=== PATIENT | male | born 1960 | race Caucasian/White ===

== ENCOUNTER → 2017-12-14 08:35 | Outpatient (CLI) | payer BC, SELFPAY ==
[2017-12-14 10:35] LABS: AST(SGOT) 21 U/L (15-37); Alanine Aminotransfer ALT/SGPT 36 U/L (16-61); Albumin, Serum 4.1 g/dL (3.2-5.0); Alkaline Phosphatase 67 U/L (45-117); Anion Gap 12 (5-15); BUN 15 mg/dL (7-18); BUN/Creat Ratio 18.2 RATIO (10-20); Bilirubin, Direct 0.11 mg/dL (0.00-0.30); Calcium,Total 8.6 mg/dL (8.5-10.1); Chloride 104 mmol/L (98-107); Cholesterol 122 mg/dL (200); Creatinine, Serum 0.82 mg/dL (0.70-1.30); EST Glomerular Filtration Rate 102 mL/min (>60); Est Glom Filt Rate - Afr Amer 124 mL/min (>60); Globulin 4.1 g/dL (2.2-4.2); Glucose 135 mg/dL (74-106); High Density Lipoprotein 31 mg/dL; Potassium 3.9 mmol/L (3.5-5.1); Protein, Total 8.2 g/dL (6.4-8.2); Sodium Level 137 mmol/L (136-145); Triglycerides 361 mg/dL; Very Low Density Lipoprotein 72 mg/dL (5-40)
[2017-12-14 13:29] LABS: Microalbumin,Random Urine < 5.0 mg/L (NO RANGE EST.)
== END ==
PROVIDERS: Family Provider Family Medicine; PCP Family Medicine; Visit Provider Family Medicine
DX: E11.9 Type 2 diabetes mellitus without complications (principal)
CPT/HCPCS: 36415; 80048; 80061; 80076; 82043; 82570

== ENCOUNTER → 2018-07-11 20:00 | Outpatient (CLI) | payer BC, SELFPAY | PROVIDERS: Family Provider Family Medicine; PCP Family Medicine; Visit Provider Family Medicine | DX: G47.33 Obstructive sleep apnea (adult) (pediatric) (principal) | CPT/HCPCS: 95811 ==

== ENCOUNTER → 2018-12-13 08:37 | Outpatient (CLI) | payer BC, SELFPAY ==
[2018-12-13 10:39] LABS: AST(SGOT) 23 U/L (15-37); Alanine Aminotransfer ALT/SGPT 36 U/L (16-61); Albumin, Serum 4.2 g/dL (3.2-5.0); Alkaline Phosphatase 75 U/L (45-117); Anion Gap 11 (5-15); BUN 13 mg/dL (7-18); BUN/Creat Ratio 16.4 RATIO (10-20); Bilirubin, Direct 0.24 mg/dL (0.00-0.30); Calcium,Total 8.7 mg/dL (8.5-10.1); Chloride 103 mmol/L (98-107); Cholesterol 122 mg/dL (200); Creatinine, Serum 0.79 mg/dL (0.70-1.30); EST Glomerular Filtration Rate 107 mL/min (>60); Est Glom Filt Rate - Afr Amer 130 mL/min (>60); Globulin 3.1 g/dL (2.2-4.2); Glucose 128 mg/dL (74-106); High Density Lipoprotein 33 mg/dL; Protein, Total 7.3 g/dL (6.4-8.2); Sodium Level 138 mmol/L (136-145); Thyroid Stim Hormone (TSH) 2.26 uIU/mL (0.358-3.74); Triglycerides 275 mg/dL; Very Low Density Lipoprotein 55 mg/dL (5-40)
== END ==
PROVIDERS: Family Provider Family Medicine; PCP Family Medicine; Referring Provider Family Medicine; Visit Provider Family Medicine
DX: E11.9 Type 2 diabetes mellitus without complications (principal); E66.9 Obesity, unspecified
CPT/HCPCS: 36415; 80048; 80061; 80076; 84403; 84443

== ENCOUNTER → 2019-06-13 08:27 | Outpatient (CLI) | payer BC, SELFPAY ==
[2019-06-13 11:31] LABS: BUN 14 mg/dL (7-18); BUN/Creat Ratio 15.8 RATIO (10-20); Calcium,Total 9.1 mg/dL (8.5-10.1); Chloride 103 mmol/L (98-107); Cholesterol 124 mg/dL (200); Creatinine, Serum 0.89 mg/dL (0.70-1.30); EST Glomerular Filtration Rate 94 mL/min (>60); Est Glom Filt Rate - Afr Amer 113 mL/min (>60); Glucose 135 mg/dL (74-106); Sodium Level 138 mmol/L (136-145); Triglycerides 364 mg/dL
[2019-06-13 11:32] LABS: Anion Gap 10 (5-15); High Density Lipoprotein 32 mg/dL; Very Low Density Lipoprotein 73 mg/dL (5-40)
== END ==
PROVIDERS: Family Provider Family Medicine; PCP Family Medicine; Visit Provider Family Medicine
DX: E11.9 Type 2 diabetes mellitus without complications (principal)
CPT/HCPCS: 36415; 80048; 80061

== ENCOUNTER → 2019-11-13 10:20 | Outpatient (CLI) | payer BC, SELFPAY ==
--- NOTE | 2019-11-13 10:25 | RAD_ITS ---
STUDY: X-RAY - RIGHT FOOT CLINICAL: Male, 59 years old. Pain, history of fracture in August TECHNIQUE: 3 view(s) of the foot. COMPARISON: None. FINDINGS: At the base of the fifth metatarsal is likely due to fracture that occurred in August. There is still fracture lucency and cortical irregularity suggesting nonunion. Normal talus and tarsal bones. Prominent calcaneal spurs. Normal visualized subtalar, talonavicular, calcaneocuboid, tarsal and tarsometatarsal articulations. There is a calcification adjacent to the medial navicular likely accessory ossicle. Normal metatarsi. Normal metatarsophalangeal joint of the great toe. Normal tibial and fibular sesamoid bones. Normal interphalangeal joint of the great toe. Normal phalanges of the great toe. Normal second through fifth metatarsophalangeal joints. Normal interphalangeal joints and phalanges of the lesser toes. No significant soft tissue swelling, or foreign body RAD/Foot min 3 Views IMPRESSION: Fracture lucency and cortical irregularity noted at the base of the fifth metatarsal. 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
== END ==
PROVIDERS: PCP Family Medicine; Referring Provider Family Medicine; Visit Provider Family Medicine
DX: M79.671 Pain in right foot (principal)
CPT/HCPCS: 73630

== ENCOUNTER → 2019-12-04 07:01 | Outpatient (CLI) | payer BC, SELFPAY ==
[2019-12-04 10:10] LABS: Vitamin D,25 Hydroxy 12.9 ng/mL
== END ==
PROVIDERS: PCP Family Medicine; Referring Provider Podiatrist; Visit Provider Podiatrist
DX: S92.351A Displaced fracture of fifth metatarsal bone, right foot, initial encounter for closed fracture (principal)
CPT/HCPCS: 36415; 82306

== ENCOUNTER → 2020-01-23 07:00 | Outpatient (CLI) | payer BC, SELFPAY ==
[2020-01-23 10:29] LABS: Vitamin D,25 Hydroxy 26.4 ng/mL
== END ==
PROVIDERS: PCP Family Medicine; Referring Provider Podiatrist; Visit Provider Podiatrist
DX: E55.9 Vitamin D deficiency, unspecified (principal)
CPT/HCPCS: 36415; 82306

== ENCOUNTER → 2020-03-09 15:23 | Outpatient (CLI) | payer BC, SELFPAY ==
--- NOTE | 2020-03-09 15:27 | MRI_ITS ---
STUDY: MRI RIGHT MIDFOOT REASON FOR EXAM: Male, 59 years old. RIGHT foot OA, mid foot pain, 5th MT fx, history of stress fx TECHNIQUE: Standardized fat and water weighted pulse sequences were obtained in all 3 orthogonal planes. COMPARISON: None. FINDINGS: Normal talonavicular articulation. Normal calcaneocuboid articulation. There is moderate degenerative arthrosis of the navicular-cuneiform articulation. Normal intercuneiform articulations. Normal first tarsometatarsal articulation. Normal Lisfranc ligament. There is moderate degenerative arthrosis of the second and third tarsometatarsal articulations. Normal cuboid fourth and cuboid fifth tarsometatarsal articulation. Transverse fracture the proximal shaft of the fifth metatarsal bone consistent with an fatigue (stress) fracture. This is surrounded by mild stress reaction and cystic change. Normal tibialis anterior tendon. Normal extensor hallucis longus tendon. Normal extensor digitorum longus tendons. Normal peroneus longus tendon and distal insertion. Normal peroneus brevis tendon and distal insertion. Normal intrinsic muscles of the mid and forefoot region. Normal extensor digitorum brevis muscle. Normal subcutis adipose space. MRI/Lower Ext/No Jt/w/o IMPRESSION: 1. CT (stress) fracture of the proximal shaft of the fifth metatarsal bone with surrounding stress reaction and cystic change. 2. Moderate navicular cuneiform and tarsometatarsal joint arthrosis. Electronically Signed: Vladimir Rivas MD at 16:50 EDT Tel , Service support ,
== END ==
PROVIDERS: PCP Family Medicine; Referring Provider Podiatrist; Visit Provider Podiatrist
DX: M19.072 Primary osteoarthritis, left ankle and foot (principal); M19.071 Primary osteoarthritis, right ankle and foot; S92.351A Displaced fracture of fifth metatarsal bone, right foot, initial encounter for closed fracture
CPT/HCPCS: 73718

== ENCOUNTER → 2020-03-19 07:06 | Outpatient (CLI) | payer BC, SELFPAY ==
[2020-03-19 10:36] LABS: Vitamin D,25 Hydroxy 30.8 ng/mL
== END ==
PROVIDERS: PCP Family Medicine; Referring Provider Podiatrist; Visit Provider Podiatrist
DX: E55.9 Vitamin D deficiency, unspecified (principal)
CPT/HCPCS: 36415; 82306

== ENCOUNTER → 2020-05-14 08:45 | Outpatient (CLI) | payer BC, SELFPAY ==
[2020-05-14 10:32] LABS: ALB/GLOB Ratio 1.2 RATIO (0.9-2.4); AST(SGOT) 31 U/L (15-37); Alanine Aminotransfer ALT/SGPT 51 U/L (16-61); Albumin, Serum 4.1 g/dL (3.2-5.0); Alkaline Phosphatase 65 U/L (45-117); Anion Gap 6 (5-15); BUN 13 mg/dL (7-18); BUN/Creat Ratio 15.7 RATIO (10-20); Calcium,Total 8.9 mg/dL (8.5-10.1); Chloride 101 mmol/L (98-107); Creatinine, Serum 0.83 mg/dL (0.70-1.30); EST Glomerular Filtration Rate 101 mL/min (>60); Est Glom Filt Rate - Afr Amer 123 mL/min (>60); Globulin 3.5 g/dL (2.2-4.2); Glucose 142 mg/dL (74-106); Protein, Total 7.6 g/dL (6.4-8.2); Sodium Level 136 mmol/L (136-145)
== END ==
PROVIDERS: PCP Family Medicine; Referring Provider Family Medicine; Visit Provider Family Medicine
DX: E11.9 Type 2 diabetes mellitus without complications (principal)
CPT/HCPCS: 36415; 80053

== ENCOUNTER → 2021-02-22 15:19 | Outpatient (CLI) | payer BC, SELFPAY ==
[2021-02-22 17:47] LABS: Vitamin B12 1089 pg/mL (211-911); Vitamin D,25 Hydroxy 24.3 ng/mL
[2021-02-22 18:20] LABS: Erythrocyte Sedimentation Rate 15 mm/hr (0-20)
[2021-02-22 19:00] LABS: CRP < 2.90 mg/L (0.0-3.0); Rheumatoid Factor < 10.0 IU/mL (<15); Uric Acid 3.8 mg/dL (3.5-7.2)
[2021-02-24 15:33] LABS: ANTINUCLEAR ANTIBODIES DIRECT Negative (Negative)
[2021-02-28 16:08] LABS: VITAMIN B6 13.8 ug/L (5.3-46.7); Vitamin B1, Thiamine 295.9 nmol/L (66.5-200.0)
[2021-02-28 19:46] LABS: CCP IgG Antibodies 5 units (0-19)
== END ==
PROVIDERS: PCP Family Medicine; Referring Provider Podiatrist; Visit Provider Podiatrist
DX: M19.072 Primary osteoarthritis, left ankle and foot (principal); M19.071 Primary osteoarthritis, right ankle and foot; E55.9 Vitamin D deficiency, unspecified
CPT/HCPCS: 36415; 82306; 82607; 82746; 84207; 84425; 84550; 85652; 86038; 86140; 86200; 86431

== ENCOUNTER → 2021-05-13 08:33 | Outpatient (CLI) | payer BC, SELFPAY ==
[2021-05-13 10:39] LABS: Vitamin D,25 Hydroxy 40.6 ng/mL
[2021-05-13 10:49] LABS: ALB/GLOB Ratio 1.2 RATIO (0.9-2.4); AST(SGOT) 31 U/L (15-37); Alanine Aminotransfer ALT/SGPT 45 U/L (16-61); Albumin, Serum 4.1 g/dL (3.2-5.0); Alkaline Phosphatase 70 U/L (45-117); Anion Gap 7 (5-15); BUN 14 mg/dL (7-18); BUN/Creat Ratio 17.6 RATIO (10-20); Calcium,Total 9.1 mg/dL (8.5-10.1); Chloride 104 mmol/L (98-107); Cholesterol 128 mg/dL (200); EST Glomerular Filtration Rate 105 mL/min (>60); Est Glom Filt Rate - Afr Amer 128 mL/min (>60); Globulin 3.5 g/dL (2.2-4.2); Glucose 140 mg/dL (74-106); High Density Lipoprotein 32 mg/dL; Potassium 4.1 mmol/L (3.5-5.1); Protein, Total 7.6 g/dL (6.4-8.2); Sodium Level 136 mmol/L (136-145); Triglycerides 287 mg/dL; Very Low Density Lipoprotein 57 mg/dL (5-40)
== END ==
PROVIDERS: PCP Family Medicine; Visit Provider Family Medicine
DX: E78.5 Hyperlipidemia, unspecified (principal); E55.9 Vitamin D deficiency, unspecified; N52.9 Male erectile dysfunction, unspecified
CPT/HCPCS: 36415; 80053; 80061; 82306; 84403

== ENCOUNTER → 2021-09-28 16:48 | Outpatient (CLI) | payer BC, SELFPAY | PROVIDERS: PCP Family Medicine; Referring Provider Family Medicine; Visit Provider Family Medicine | DX: U07.1 COVID-19 (principal) | CPT/HCPCS: 87635; U0005; U0003 ==

== ENCOUNTER 2021-10-04 13:36 | Outpatient (CLI) | payer BC, SELFPAY ==
[2021-10-04 13:47] VITALS: BP 127/89; PULSE 96; RESP 16; TEMP 36.9; O2SAT 96; BMI 40.4
[2021-10-04] MEDS: 0.9% Saline Lock 10 ML Syringe IV (13:50)
[2021-10-04 14:23] VITALS: BP 140/81; PULSE 86; RESP 16; TEMP 37; O2SAT 97
[2021-10-04 15:07] VITALS: BP 143/90; PULSE 87; RESP 16; TEMP 36.7; O2SAT 99
== END 2021-10-04 15:22 | disposition home or self-care (01) ==
LOC: MS3OUT 13:37 → MS3 13:37
PROVIDERS: PCP Family Medicine; Referring Provider Nurse Practitioner Adult Health; Visit Provider Nurse Practitioner Adult Health
DX: U07.1 COVID-19 (principal)
CPT/HCPCS: J7050; M0245; Q0245; A4216

== ENCOUNTER 2021-12-02 08:35 | Outpatient (CLI) | payer BC, SELFPAY ==
[2021-12-02 10:28] LABS: Anion Gap 4 (5-15); BUN 12 mg/dL (7-18); Calcium,Total 9.1 mg/dL (8.5-10.1); Chloride 106 mmol/L (98-107); Cholesterol 126 mg/dL (200); EST Glomerular Filtration Rate 105 mL/min (>60); Est Glom Filt Rate - Afr Amer 126 mL/min (>60); Glucose 123 mg/dL (74-106); High Density Lipoprotein 36 mg/dL; Sodium Level 135 mmol/L (136-145); Triglycerides 235 mg/dL; Very Low Density Lipoprotein 47 mg/dL (5-40)
== END 2021-12-02 23:59 | disposition home or self-care (01) ==
LOC: MFPLAB 08:36
PROVIDERS: PCP Family Medicine; Referring Provider Family Medicine; Visit Provider Family Medicine
DX: E11.9 Type 2 diabetes mellitus without complications (principal); E55.9 Vitamin D deficiency, unspecified
CPT/HCPCS: 36415; 80048; 80061; 82306

== ENCOUNTER → 2022-05-26 | Outpatient (CLI) | payer BC, SELFPAY ==
[2022-05-26 10:32] LABS: Anion Gap 9 (5-15); BUN 13 mg/dL (7-18); BUN/Creat Ratio 15.4 RATIO (10-20); Calcium,Total 9.2 mg/dL (8.5-10.1); Chloride 105 mmol/L (98-107); Creatinine, Serum 0.84 mg/dL (0.70-1.30); EST Glomerular Filtration Rate 98 mL/min (>60); Est Glom Filt Rate - Afr Amer 119 mL/min (>60); Glucose 143 mg/dL (74-106); Potassium 4.1 mmol/L (3.5-5.1); Sodium Level 137 mmol/L (136-145)
[2022-05-26 10:44] LABS: Microalbumin,Random Urine < 5.0 mg/L (NO RANGE EST.)
== END | disposition home or self-care (01) ==
LOC: MFPLAB 08:52
PROVIDERS: PCP Family Medicine; Referring Provider Family Medicine; Visit Provider Family Medicine
DX: E11.9 Type 2 diabetes mellitus without complications (principal)
CPT/HCPCS: 36415; 80048; 82043

== ENCOUNTER → 2022-06-08 | Outpatient (CLI) | payer BC, SELFPAY | END | disposition home or self-care (01) | PROVIDERS: PCP Family Medicine; Visit Provider Podiatrist | DX: L03.031 Cellulitis of right toe (principal) | CPT/HCPCS: 87070; 87075; 87077; 87186; 87205 ==

== ENCOUNTER → 2022-12-29 | Outpatient (CLI) | payer BC, SELFPAY ==
--- NOTE | 2022-12-29 08:41 | RAD_ITS ---
INDICATION: PAIN EXAMINATION/TECHNIQUE: X-RAY - RIGHT XR Knee Complete 4 Views or More 4 VIEWS COMPARISON: None. FINDINGS: No acute fracture or dislocation. No destructive bone changes. Mild patellofemoral osteoarthrosis with joint space narrowing and mild spurring. Mild osteoarthrosis of the medial compartment with mild joint space narrowing and spurring. Joint spaces are otherwise well-maintained. Normal alignment. Soft tissues are unremarkable. No radiopaque foreign body or soft tissue gas. RAD/Knee 4 or More Views IMPRESSION: No acute findings. Mild osteoarthrosis. Electronically Signed: Debra Bethea MD at 18:11 EDT Reading Location ID and State: [id number] / Tel , Service support ,
--- NOTE | 2022-12-29 09:00 | RAD_ITS ---
INDICATION: PAIN EXAMINATION/TECHNIQUE: X-RAY - LEFT XR Knee Complete 4 Views or More 4 VIEWS COMPARISON: None. FINDINGS: No acute fracture or dislocation. No destructive bone changes. Small joint effusion. Mild osteoarthrosis of the patellofemoral joint with mild spurring. Joint spaces are otherwise well-maintained. Normal alignment. Soft tissues are unremarkable. No radiopaque foreign body or soft tissue gas. RAD/Knee 4 or More Views IMPRESSION: Small joint effusion. Mild osteoarthrosis. Electronically Signed: Debra Bethea MD at 18:07 EDT Reading Location ID and State: [id number] / Tel , Service support ,
[2022-12-29 10:21] LABS: ALB/GLOB Ratio 1.2 RATIO (0.9-2.4); AST(SGOT) 26 U/L (15-37); Alanine Aminotransfer ALT/SGPT 38 U/L (16-61); Albumin, Serum 4.1 g/dL (3.2-5.0); Alkaline Phosphatase 72 U/L (45-117); Anion Gap 11 (5-15); BUN 14 mg/dL (7-18); BUN/Creat Ratio 16.6 RATIO (10-20); Calcium,Total 9.4 mg/dL (8.5-10.1); Chloride 101 mmol/L (98-107); Creatinine, Serum 0.84 mg/dL (0.70-1.30); EST Glomerular Filtration Rate 98 mL/min (>60); Est Glom Filt Rate - Afr Amer 119 mL/min (>60); Globulin 3.5 g/dL (2.2-4.2); Glucose 159 mg/dL (74-106); Potassium 4.1 mmol/L (3.5-5.1); Protein, Total 7.6 g/dL (6.4-8.2); Sodium Level 138 mmol/L (136-145)
== END | disposition home or self-care (01) ==
LOC: MTLAB 08:39
PROVIDERS: PCP Family Medicine; Referring Provider Family Medicine; Visit Provider Family Medicine
DX: E78.5 Hyperlipidemia, unspecified (principal); M17.0 Bilateral primary osteoarthritis of knee
CPT/HCPCS: 36415; 73564; 80053

== ENCOUNTER → 2023-04-11 | Outpatient (CLI) | payer BC, SELFPAY ==
[2023-04-11 13:14] LABS: Absolute Lymphocyte Count 2.84 X10^3/uL (0.83-4.51); Absolute Neutrophil Count 7.8 X10^3/uL (2.0-7.7); Basophil# 0.15 X10^3/uL; Basophil% 1.2 % (0-1); Eosinophil# 1.06 X10^3/uL; Eosinophils% 8.2 % (0-5); Hematocrit 48.6 % (40-54); Hemoglobin 16.6 g/dL (13.0-16.5); Lymphocyte # 2.84 X10^3/ul (0.83-4.51); Lymphocyte % 22.1 % (19-41); Mean Corp Hgb Conc 34.2 g/dL (32-36); Mean Corpuscular Hgb 30.5 pg (27.0-32.0); Mean Corpuscular Volume 89.2 fL (80-94); Mean Platelet Vol. 10.7 fl (6.2-12.0); Monocyte# 0.98 X10^3/uL; Monocyte% 7.6 % (0-10); NRBC Flagged by Analyzer 0 % (0-5); Neutrophil # 7.77 X10^3/uL (2.7-7.7); Neutrophil % 60.5 % (47-70); Platelet Count 289 K/mm3 (150-450); RBC Distribution Width CV 12.2 % (11.6-14.6); RBC Distribution Width SD 39.5 fl (35.1-43.9); Red Blood Count 5.45 M/mm3 (4.6-6.2); White Blood Count 12.9 K/mm3 (4.4-11.0)
[2023-04-11 13:15] LABS: Erythrocyte Sedimentation Rate 9 mm/hr (0-20)
[2023-04-11 13:34] LABS: ALB/GLOB Ratio 1.1 RATIO (0.9-2.4); AST(SGOT) 21 U/L (15-37); Alanine Aminotransfer ALT/SGPT 32 U/L (16-61); Albumin, Serum 3.9 g/dL (3.2-5.0); Alkaline Phosphatase 85 U/L (45-117); Anion Gap 6 (5-15); BUN 13 mg/dL (7-18); BUN/Creat Ratio 16.1 RATIO (10-20); CRP < 2.90 mg/L (0.0-3.0); Calcium,Total 9.2 mg/dL (8.5-10.1); Chloride 105 mmol/L (98-107); Creatinine, Serum 0.81 mg/dL (0.70-1.30); EST Glomerular Filtration Rate 103 mL/min (>60); Est Glom Filt Rate - Afr Amer 125 mL/min (>60); Globulin 3.4 g/dL (2.2-4.2); Glucose 126 mg/dL (74-106); Potassium 4.4 mmol/L (3.5-5.1); Protein, Total 7.3 g/dL (6.4-8.2); Rheumatoid Factor < 10.0 IU/mL (<15); Sodium Level 135 mmol/L (136-145)
[2023-04-11 14:14] LABS: Hepatitis B Surface Antibody Non-Reactive; Hepatitis B Surface Antigen Non-Reactive (Nonreactive); Hepatitis C Antibody Non-Reactive (Nonreactive)
[2023-04-12 12:09] LABS: CCP IgG Antibodies 5 units (0-19)
[2023-04-12 15:08] LABS: ANTINUCLEAR ANTIBODIES DIRECT Negative (Negative)
== END | disposition home or self-care (01) ==
LOC: MTLAB 10:11
PROVIDERS: PCP Family Medicine; Referring Provider Internal Medicine Rheumatology; Visit Provider Internal Medicine Rheumatology
DX: M06.4 Inflammatory polyarthropathy (principal); E11.9 Type 2 diabetes mellitus without complications; M19.041 Primary osteoarthritis, right hand; M19.042 Primary osteoarthritis, left hand; M19.071 Primary osteoarthritis, right ankle and foot; M19.072 Primary osteoarthritis, left ankle and foot; I10 Essential (primary) hypertension; E78.5 Hyperlipidemia, unspecified
CPT/HCPCS: 36415; 80053; 85025; 85652; 86038; 86140; 86200; 86431; 86706; 86803; 87340

== ENCOUNTER → 2023-05-01 | Outpatient (CLI) | payer BC, SELFPAY ==
[2023-05-01 12:28] LABS: Pathologist Comment May follow
[2023-05-01 13:07] LABS: Synovial Fld Mononuclear WBC # 0.072 10^3/ul; Synovial Fld Mononuclear WBC % 88.9 %; Synovial Fld Polynuclear WBC # 0.009 10^3/uL; Synovial Fld Polynuclear WBC % 11.1 %
[2023-05-01 13:11] LABS: AUTO B FLUID DILUENT BKGD CT WBC <0.1 RBC <0.01 (W<.1,R<.01)
[2023-05-01 13:12] LABS: Source / Synovial Fluid RIGHT KNEE; Source- Body Fluid SYNOVIAL
[2023-05-01 13:15] LABS: CRYSTALS, BODY FLUID NO CRYSTALS SEEN
[2023-05-01 13:16] LABS: Appearance /Synovial Fluid Clear (CLEAR); Color / Synovial Fluid Yellow (Pale Yellow)
[2023-05-01 14:24] LABS: Lymph 54 %; Monocyte /Synovial Fluid 12 %; Neutrophil 8 % (0-25); Other Cell /Synovial Fluid 26 %
[2023-05-01 14:25] LABS: Body Fluid QC Type(s) BF1Q,BF2Q; RBC /Synovial Fluid 170 /mm3 (0)
[2023-05-03 09:50] LABS: Pathologist Review Reviewed
== END | disposition home or self-care (01) ==
LOC: LABSPEC 12:18
PROVIDERS: PCP Family Medicine; Referring Provider Internal Medicine Rheumatology; Visit Provider Internal Medicine Rheumatology
DX: M06.4 Inflammatory polyarthropathy (principal); E11.9 Type 2 diabetes mellitus without complications; M19.041 Primary osteoarthritis, right hand; M19.042 Primary osteoarthritis, left hand; M19.071 Primary osteoarthritis, right ankle and foot; M19.072 Primary osteoarthritis, left ankle and foot; M21.41 Flat foot [pes planus] (acquired), right foot; M21.42 Flat foot [pes planus] (acquired), left foot; I10 Essential (primary) hypertension; E78.5 Hyperlipidemia, unspecified; G47.33 Obstructive sleep apnea (adult) (pediatric); Z79.899 Other long term (current) drug therapy
CPT/HCPCS: 87070; 87075; 87205; 89050; 89051; 89060

== ENCOUNTER → 2023-06-29 | Outpatient (CLI) | payer BC, SELFPAY ==
[2023-06-29 10:43] LABS: Microalbumin,Random Urine < 5.0 mg/L (NO RANGE EST.)
[2023-06-29 10:45] LABS: Anion Gap 6 (5-15); BUN 15 mg/dL (7-18); BUN/Creat Ratio 19.3 RATIO (10-20); Calcium,Total 8.7 mg/dL (8.5-10.1); Chloride 107 mmol/L (98-107); Cholesterol 139 mg/dL (200); Creatinine, Serum 0.78 mg/dL (0.70-1.30); EST Glomerular Filtration Rate 107 mL/min (>60); Est Glom Filt Rate - Afr Amer 130 mL/min (>60); Glucose 124 mg/dL (74-106); High Density Lipoprotein 42 mg/dL; Sodium Level 135 mmol/L (136-145); Triglycerides 183 mg/dL; Very Low Density Lipoprotein 37 mg/dL (5-40)
[2023-06-29 11:07] LABS: Hemoglobin A1c 5.9 % (3.8-5.6)
== END | disposition home or self-care (01) ==
LOC: MFPLAB 08:49
PROVIDERS: PCP Family Medicine; Visit Provider Family Medicine
DX: E11.9 Type 2 diabetes mellitus without complications (principal)
CPT/HCPCS: 36415; 80048; 80061; 82043; 82570; 83036

== ENCOUNTER → 2023-07-03 | Outpatient (CLI) | payer BC, SELFPAY ==
[2023-07-03 17:32] LABS: Absolute Neutrophil Count 7.9 X10^3/uL (2.0-7.7); Basophil# 0.13 X10^3/uL; Eosinophil# 0.42 X10^3/uL; Eosinophils% 3.3 % (0-5); Hematocrit 46.5 % (40-54); Hemoglobin 16.2 g/dL (13.0-16.5); Lymphocyte % 25.4 % (19-41); Mean Corp Hgb Conc 34.8 g/dL (32-36); Mean Corpuscular Hgb 31.2 pg (27.0-32.0); Mean Corpuscular Volume 89.4 fL (80-94); Mean Platelet Vol. 10.5 fl (6.2-12.0); Monocyte% 7.1 % (0-10); NRBC Flagged by Analyzer 0 % (0-5); Neutrophil # 7.91 X10^3/uL (2.7-7.7); Neutrophil % 62.7 % (47-70); Platelet Count 296 K/mm3 (150-450); RBC Distribution Width SD 42.5 fl (35.1-43.9); White Blood Count 12.6 K/mm3 (4.4-11.0)
[2023-07-03 17:55] LABS: AST(SGOT) 16 U/L (15-37); Alanine Aminotransfer ALT/SGPT 33 U/L (16-61); Albumin, Serum 3.6 g/dL (3.2-5.0); Alkaline Phosphatase 88 U/L (45-117); Anion Gap 7 (5-15); BUN 15 mg/dL (7-18); BUN/Creat Ratio 17.5 RATIO (10-20); Calcium,Total 9.2 mg/dL (8.5-10.1); Chloride 105 mmol/L (98-107); Creatinine, Serum 0.86 mg/dL (0.70-1.30); EST Glomerular Filtration Rate 96 mL/min (>60); Est Glom Filt Rate - Afr Amer 116 mL/min (>60); Globulin 3.7 g/dL (2.2-4.2); Glucose 158 mg/dL (74-106); Potassium 3.7 mmol/L (3.5-5.1); Protein, Total 7.3 g/dL (6.4-8.2); Sodium Level 137 mmol/L (136-145)
[2023-07-09 06:07] LABS: G6PD Quant Test 265 (127-427); Red Blood Cell Count Test/G6PD 5.22 x10E6/uL (4.14-5.80)
== END | disposition home or self-care (01) ==
LOC: MTLAB 14:22
PROVIDERS: PCP Family Medicine; Referring Provider Internal Medicine Rheumatology; Visit Provider Internal Medicine Rheumatology
DX: M06.4 Inflammatory polyarthropathy (principal); Z79.899 Other long term (current) drug therapy
CPT/HCPCS: 36415; 80053; 82955; 85025

== ENCOUNTER 2023-08-13 11:43 | Observation (INO) | payer BC, SELFPAY ==
[2023-08-13 11:44] VITALS: BP 134/89; PULSE 111; RESP 16; TEMP 36.6; O2SAT 97; BMI 42.3
--- NOTE | 2023-08-13 12:32 | EKG12_ITS ---
Test Reason : CP Blood Pressure : / mmHG Vent. Rate : 110 BPM Atrial Rate : 110 BPM P-R Int : 172 ms QRS Dur : 088 ms QT Int : 330 ms P-R-T Axes : 031 086 003 degrees QTc Int : 446 ms Sinus tachycardia T wave abnormality, consider inferior ischemia Abnormal ECG Confirmed by CAIO AMADOR, DEMETRIUS ([id number]), supervising editor trailer ROOSEVELT MAYES ([id number]) on 08/20/2023 10:01:24 AM Referred By: TANNER/ZORA Confirmed By:ANDREA KEARNEY MD
--- NOTE | 2023-08-13 12:39 | RAD_ITS ---
STUDY: X-RAY CHEST REASON FOR EXAM: Male, 63 years old. Chest pain and nausea. TECHNIQUE: Single AP portable view of the chest. COMPARISON: None. FINDINGS: EKG electrodes are seen. The lungs are clear and expanded. There is no demonstrated pleural abnormality. Normal size heart. Normal mediastinum and jenniffer. Normal visualized pulmonary arteries. Normal visualized aortic arch and descending thoracic aorta. There are diffuse degenerative changes of the visualized thoracic spine. Normal visualized ribs, clavicles, and shoulders. There is no demonstrated abnormality of the visualized soft tissue structures of the upper abdomen. RAD/Chest 1 View (Portable) IMPRESSION: No acute abnormality is seen. Electronically Signed: Viktor Mckinney MD at 13:01 EST ,
[2023-08-13 12:50] LABS: Absolute Lymphocyte Count 1.11 X10^3/uL (0.83-4.51); Absolute Neutrophil Count 4.6 X10^3/uL (2.0-7.7); Basophil# 0.12 X10^3/uL; Basophil% 1.8 % (0-1); Eosinophil# 0.02 X10^3/uL; Eosinophils% 0.3 % (0-5); Hematocrit 45.4 % (40-54); Hemoglobin 15.3 g/dL (13.0-16.5); Lymphocyte # 1.11 X10^3/ul (0.83-4.51); Lymphocyte % 16.6 % (19-41); Mean Corp Hgb Conc 33.7 g/dL (32-36); Mean Platelet Vol. 9.6 fl (6.2-12.0); Monocyte# 0.78 X10^3/uL; Monocyte% 11.7 % (0-10); NRBC Flagged by Analyzer 0 % (0-5); Neutrophil % 68.9 % (47-70); Platelet Count 247 K/mm3 (150-450); RBC Distribution Width CV 12.7 % (11.6-14.6); RBC Distribution Width SD 41.5 fl (35.1-43.9); White Blood Count 6.7 K/mm3 (4.4-11.0)
[2023-08-13] MEDS: Aspirin 81 MG TAB.CHEW 324 MG PO (12:56)
[2023-08-13 13:06] LABS: Anion Gap 6 (5-15); BUN 15 mg/dL (7-18); BUN/Creat Ratio 17.7 RATIO (10-20); Calcium,Total 9.2 mg/dL (8.5-10.1); Chloride 104 mmol/L (98-107); Creatinine, Serum 0.85 mg/dL (0.70-1.30); EST Glomerular Filtration Rate 98 mL/min (>60); Est Glom Filt Rate - Afr Amer 118 mL/min (>60); Estimated Creatinine Clearance 93.04 ml/min; Glucose 112 mg/dL (74-106); Potassium 3.9 mmol/L (3.5-5.1); Sodium Level 135 mmol/L (136-145); Troponin-I HS (w/2H Reflex) 25 pg/mL (3.0-78.0)
--- NOTE | 2023-08-13 13:58 | ED.VIS.CHEST ---
HPI History of Present Illness Chief Complaint: Chest Pain Informant: patient Onset/Context/Timing Onset: Days (Past 6 days) Activity at onset: sudden and sleep Timing: Intermittent Quality: Positive for Pressure Location: Substernal Current Severity: Gone Maximum Severity: Moderate Worsened By: Nothing Relieved By: Nothing Associated Symptoms: Positive for Dyspnea; Negative for Nausea, Vomiting, Diaphoresis, Cough, Fever, Lightheadedness, Acid Reflux or Palpitations Narrative Narrative: Patient is a 63-year-old male. He has history of diabetes, hypertension, hypercholesterolemia. There is no family history of coronary disease. He has no known history of coronary disease. He denies history of PE or DVT. He presents because 3 out of the past 6 nights he is awakened from sleep with chest pressure lasting 5+ minutes with dyspnea. He has a sit up in bed. He uses his APAP machine. He was not approved for BiPAP. 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 He recommended BiPAP however insurance declined. Patient does have history of diabetic neuropathy. Patient is presently pain-free. He denied nausea, vomiting or diaphoresis with these 3 episodes. He denies leg pain or swelling or discoloration. He denies black or maroon-colored stool. He denies history of reflux or hiatal hernia. He denies intolerance to food. He is on an NSAID. Prior Similar Symptoms: No Recent Illness/Hospitalization: No CVD Risk Factors: Positive for Hypertension, Diabetes and Hypercholesterolemia; Negative for Family History 1' </=55 PE Risk Factors: Negative for Recent Travel/Surgery, Recent Immobilization, Prior DVT or PE, Cancer or OCP + Smoking + >/=35 TAD Risk Factors: Positive for Hypertension; Negative for Marfan's Syndrome or Family History [facility] Medical History Diabetes HTN (hypertension) Hyperlipidemia Sleep apnea Home Medications empagliflozin 10 mg tablet (Jardiance) 25 mg PO DAILY 10/04/21 [History Last Taken 08/13/23] gemfibrozil 600 mg tablet 600 mg PO BID 10/04/21 [History Last Taken 08/13/23] icosapent ethyl 1 gram capsule (Vascepa) 2 g PO BID 10/04/21 [History Last Taken 08/13/23] insulin glargine U-300 conc 300 unit/mL (3 mL) subcutaneous pen (Toujeo Max U-300 SoloStar) 100 unit subcut DAILY 10/04/21 [History Last Taken 08/12/23] amlodipine 10 mg-benazepril 40 mg capsule 1 cap PO DAILY 08/13/23 [History Last Taken 08/13/23] atorvastatin 80 mg tablet 80 mg PO DAILY 08/13/23 [History Last Taken 08/13/23] calcium 600 mg capsule 600 mg PO BID 08/13/23 [History Last Taken 08/13/23] cholecalciferol (vitamin D3) 50 mcg (2,000 unit) tablet (Vitamin D3) 50 mcg PO BID 08/13/23 [History Last Taken 08/13/23] coenzyme Q10 100 mg capsule (CoQ-10) 200 mg PO DAILY 08/13/23 [History Last Taken 08/13/23] gabapentin 300 mg capsule 300 mg PO Q12H 08/13/23 [History Last Taken 08/13/23] insulin lispro 200 unit/mL (3 mL) subcutaneous pen (Humalog KwikPen U-200 Insulin) 25 unit subcut TID 08/13/23 [History Last Taken 08/13/23] meloxicam 15 mg tablet 15 mg PO DAILY 08/13/23 [History Last Taken 08/13/23] sulfasalazine 500 mg tablet,delayed release 0.5 g PO Q12H 08/13/23 [History Last Taken 08/13/23] trazodone 50 mg tablet 50 mg PO DAILY 08/13/23 [History Last Taken 08/12/23] Allergy/AdvReac Type Severity Reaction Status Date / Time No Known Allergies Allergy Verified 08/13/23 11:45 Social History (Updated 08/13/23 @ 14:[address] Jorge De Souza MD) Smoking Status: Unknown if ever smoked substance use type: does not use ROS ROS ED Constitutional Constitutional ED: Denies chills, fever(s), subjective, sweats or weight loss Eyes Eyes: Reports none ENT ENT ED: Denies ear pain, rhinorrhea or sore throat Cardiovascular Cardiovascular: Reports as per HPI and paroxysmal nocturnal dyspnea; Denies orthopnea Respiratory/Chest Respiratory/Chest: Reports paroxysmal nocturnal dyspnea; Denies cough, dyspnea on exertion or orthopnea Gastrointestinal Gastrointestinal: Denies abdominal pain, melena, nausea or vomiting Genitourinary Genitourinary ED: Denies dysuria, hematuria or urinary frequency Musculoskeletal Musculoskeletal: Denies arthralgias, back pain or neck pain Integumentary Denies rash Neurologic Neurologic: Denies headache(s), paresthesias or weakness Hematologic/Lymphatic Hematologic/Lymphatic: Denies easy bleeding or easy bruising EXAM Physical Exam Const Vital Signs: 08/13/23 11:44 08/13/23 12:18 08/13/23 12:32 Temperature 97.8 F Temperature Source Temporal Pulse Rate 111 H Respiratory Rate 16 Respiratory Effort Normal Blood Pressure 134/89 H Blood Pressure Mean 104 Pulse Ox 97 Oxygen Delivery Method Room Air Room Air 08/13/23 14:20 08/13/23 15:00 Temperature Temperature Source Pulse Rate 106 H 100 Respiratory Rate 10 L 20 H Respiratory Effort Blood Pressure Blood Pressure Mean Pulse Ox 95 95 Oxygen Delivery Method Positive well nourished, well developed and obese General Appearance ED: well developed and NAD; Negative for pallor Nutritional Appearance: obese HEENT Reports TM's clear Tympanic Membrane ED: Yes TM's clear Eyes PERRL and EOMs intact bilaterally General Eye ED: Negative for pale conjunctiva or scleral icterus Neck no lymphadenopathy, supple and no JVD Chest Wall inspection of chest normal and palpation of chest normal Resp normal respiratory effort and clear to auscultation bilaterally Cardio regular rate, regular rhythm, S1 normal heart sound, S2 normal heart sound and no murmurs GI normal to inspection, nondistended, normoactive bowel sounds, soft to palpation, non-tender, non-distended and no masses; Negative for hepatosplenomegaly Back/Spine Back/Spine Narrative: Inspection is normal. Extremity normal to inspection General Extremety ED: Negative for edema, pulses abnormal or tenderness General Extremity: Negative for edema or pulses abnormal Neuro oriented x3, CN's II-XII intact bilaterally and no sensory deficits noted Sensorium / Orientation: awake and alert Motor Exam: strength 5/5 throughout Psych mental status grossly normal Skin no rashes or lesions noted and no wounds General Skin Exam: Negative for jaundice or pallor Heart Score History: Moderately Suspicious ECG: Nonspecific Repolarization Age: >45 - <65 years Risk Factors: >/= 3 Risk Factors or History of CAD Troponin: </= Normal Limit Score: 5 MDM MDM MDM Narrative Medical decision making narrative: Patient presents with PND and chest pressure that awakens him from sleep. He does have 3 risk factors for coronary disease. Will obtain EKG and serial troponins. If troponins are elevated we will contact hospitalist on mold designer for admission. If troponins are not elevated will contact mold designer regarding inpatient versus outpatient work-up and discussed this with patient. CBC was obtained to rule out anemia. BMP to assess renal. Troponin and 2-hour troponin determine cardiac ischemia. Chest x-ray was obtained to see if there is a pulmonary or possible GI cause i.e. hiatal. Lab Data Attestation: I reviewed the patient's lab results. Lab results narrative: CBC is normal. Basic metabolic panel is unremarkable her glucose is 112. First troponin is 25-second is 29 with a delta of 4. These are both normal. Awaiting call back from cardiology on-call to discuss case determine outpatient work-up is appropriate versus 23 observation and inpatient stress test. Labs: Laboratory Results - last 24 hr 08/13/23 08/13/23 12:10 14:55 WBC 6.7 RBC 5.10 Hgb 15.3 Hct 45.4 MCV 89.0 MCH 30.0 MCHC 33.7 RDW Std Deviation 41.5 RDW Coeff of Heriberto 12.7 Plt Count 247 MPV 9.6 Immature Gran % (Auto) 0.700 Neut % (Auto) 68.9 Lymph % (Auto) 16.6 L Cecil % (Auto) 11.7 H Eos % (Auto) 0.3 Baso % (Auto) 1.8 H Absolute Neuts (auto) 4.6 Absolute Lymphs (auto) 1.11 Nucleated RBC % 0 Sodium 135 L Potassium 3.9 Chloride 104 Carbon Dioxide 25.0 Anion Gap 6 BUN 15 Creatinine 0.85 Estim Creat Clear Calc 93.04 Est GFR (MDRD) Af Amer 118 Est GFR (MDRD) Non-Af 98 BUN/Creatinine Ratio 17.7 Glucose 112 H Calcium 9.2 Troponin I High Sens 25 29 Radiography Chest X-Ray - ED: 1 View and Read by ED Physician (Single view portable chest x-ray reveals no abnormality. Cardiac silhouette and size normal. Perihilar region is normal. Lung parenchyma is normal. Osseous structures remark this was independent reviewed interpreted by me) Diagnostic Testing: Clinical Impression(s) from Imaging Studies Chest X-Ray 08/13/23 12:39 IMPRESSION: No acute abnormality is seen. Electronically Signed: Viktor Mckinney MD at 13:01 EST , EKG Initial EKG: Attestation: I personally reviewed and interpreted this EKG as follows: Interpretation: Sinus Tachycardia (Sinus tachycardia rate of 110. There is an ossific T wave changes noted in lead III. Believe the changes noted in 3 and aVF are artifacts are noted in other leads as well. MN interval is 172 ms. Cures duration 88 ms. QT duration 230 ms. 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, pneumonia Reason(s) pneumonia less likely: Positive for no infiltrate on CXR, no elevation in WBC count, no noted fever and symptoms not consistent with acute infection and aortic dissection Reason(s) Aortic dissection less likely:: Positive for normal vascular exam, normal neurological exam, no significant risk factors for dissection, no widened mediastinum on CXR, pain not sudden onset, no ripping/tearing pain, no pain to back and blood pressure appropriate in ED Management Discussion w/another healthcare provider: Hospitalist and Lighting Fixtures Decorator (Spoke with mold designer on-call Dr. Patel who recommended inpatient work-up. He recommended echo first and pending results of echo whether patient needs a stress test or potential cardiac catheterization.) Discharge Plan Triage Chief Complaint: Chest Pain ED Provider: Jorge De Souza Dx/Rx/DC Orders Clinical Impression: Chest pressure, Diabetes, Dyspnea, paroxysmal nocturnal, History of hypertension, History of hypercholesterolemia Prescriptions: No Action gemfibrozil 600 mg tablet 600 mg PO BID icosapent ethyl [Vascepa] 1 gram Capsule 2 g PO BID Jardiance 10 mg Tablet 25 mg PO DAILY Toujeo Max U-300 SoloStar 300 unit/mL (3 mL) Insulin Pen 100 unit SUBCUT DAILY amlodipine-benazepril 10-40 mg capsule 1 cap PO DAILY Patient Comments: TAKE 1 CAPSULE BY MOUTH EVERY DAY atorvastatin 80 mg tablet 80 mg PO DAILY Patient Comments: TAKE 1 TABLET BY MOUTH EVERY DAY gabapentin 300 mg capsule 300 mg PO Q12H Patient Comments: TAKE 1 CAPSULE BY MOUTH TWICE A DAY Humalog KwikPen Insulin 200 unit/mL (3 mL) insulin pen 25 unit SUBCUT TID Patient Comments: 25 UNIT UNDER SKIN THREE TIMES DAILY meloxicam 15 mg tablet 15 mg PO DAILY Patient Comments: TAKE 1 TABLET BY MOUTH EVERY DAY sulfasalazine 500 mg tablet,delayed release (DR/EC) 0.5 g PO Q12H Patient Comments: TAKE 1 TABLET BY MOUTH TWICE A DAY trazodone 50 mg tablet 50 mg PO DAILY Patient Comments: TAKE 1 TABLET BY MOUTH EVERYDAY AT BEDTIME cholecalciferol (vitamin D3) [Vitamin D3] 50 mcg (2,000 unit) tablet 50 mcg PO BID coenzyme Q10 [CoQ-10] 100 mg capsule 200 mg PO DAILY calcium 600 mg capsule 600 mg PO BID Primary Care Provider: Yovany Erazo Referrals: Yovany Erazo MD [Primary Care Provider] - Disposition Disposition: Acute Care Hospital [facility]
[2023-08-13 14:20] VITALS: PULSE 106; RESP 10; O2SAT 95
[2023-08-13 14:46] LABS: Reflex Troponin-HS? (from REC) Y
[2023-08-13 15:00] VITALS: PULSE 100; RESP 20; O2SAT 95
[2023-08-13 15:30] LABS: Troponin-I HS 29 pg/mL (3.0-78.0)
--- NOTE | 2023-08-13 16:19 | HP.PCM.HOS_ITS ---
HPI - General General Date of Admission: 08/13/23 HPI Narrative DAPHNEY VINSON, is a 63 M who presents to the hospital for shortness of breath and periodic chest pain over the last 6 days. He has had 3 nights where he is woken up gasping for breath and noticed to have left-sided chest pain. This has resolved fairly quickly upon awakening. He does have a history obstructive sleep apnea and does wear his CPAP but he is morbidly obese and there is a heart history in the family as well. In the ER EKG was nonischemic and initial troponin was 25 with a second troponin going up to 29. Cardiology was consulted by the ER and they felt that it would be prudent to admit the patient for f urther work-up. [facility] Medical History Diabetes HTN (hypertension) Hyperlipidemia Sleep apnea Home Medications empagliflozin 10 mg tablet (Jardiance) 25 mg PO DAILY 10/04/21 [History Last Taken 08/13/23] gemfibrozil 600 mg tablet 600 mg PO BID 10/04/21 [History Last Taken 08/13/23] icosapent ethyl 1 gram capsule (Vascepa) 2 g PO BID 10/04/21 [History Last Taken 08/13/23] insulin glargine U-300 conc 300 unit/mL (3 mL) subcutaneous pen (Toujeo Max U- 300 SoloStar) 100 unit subcut DAILY 10/04/21 [History Last Taken 08/12/23] amlodipine 10 mg-benazepril 40 mg capsule 1 cap PO DAILY 08/13/23 [History Last Taken 08/13/23] atorvastatin 80 mg tablet 80 mg PO DAILY 08/13/23 [History Last Taken 08/13/23] calcium 600 mg capsule 600 mg PO BID 08/13/23 [History Last Taken 08/13/23] cholecalciferol (vitamin D3) 50 mcg (2,000 unit) tablet (Vitamin D3) 50 mcg PO BID 08/13/23 [History Last Taken 08/13/23] coenzyme Q10 100 mg capsule (CoQ-10) 200 mg PO DAILY 08/13/23 [History Last Taken 08/13/23] gabapentin 300 mg capsule 300 mg PO Q12H 08/13/23 [History Last Taken 08/13/23] insulin lispro 200 unit/mL (3 mL) subcutaneous pen (Humalog KwikPen U-200 In sulin) 25 unit subcut TID 08/13/23 [History Last Taken 08/13/23] meloxicam 15 mg tablet 15 mg PO DAILY 08/13/23 [History Last Taken 08/13/23] sulfasalazine 500 mg tablet,delayed release 0.5 g PO Q12H 08/13/23 [History Last Taken 08/13/23] trazodone 50 mg tablet 50 mg PO DAILY 08/13/23 [History Last Taken 08/12/23] Allergy/AdvReac Type Severity Reaction Status Date / Time No Known Allergies Allergy Verified 08/13/23 11:45 Family History Other Heart disease Surgical History Status post carpal tunnel release Social History Smoking Status: Unknown if ever smoked substance use type: does not use ROS Constitutional Constitutional: Denies chills, fatigue, fever(s) or malaise Eyes Eyes: Denies blurry vision ENT HEENT: Denies headache(s) or nasal discharge Cardiovascular Cardiovascular: Reports chest pain; Denies dyspnea on exertion or syncope Respiratory/Chest Respiratory/Chest: Reports shortness of breath at rest; Denies cough or s hortness of breath with exertion Gastrointestinal Gastrointestinal: Denies constipation, diarrhea, nausea or vomiting Genitourinary Genitourinary: Denies dysuria Neurologic Neurologic: Denies focal weakness, numbness or tremor(s) Psychiatric Psychiatric: Denies anxiety or depression Vital Signs Vital Signs Vital Signs: 08/13/23 11:44 08/13/23 12:18 08/13/23 12:32 Temperature 97.8 F Temperature Source Temporal Pulse Rate 111 H Respiratory Rate 16 Respiratory Effort Normal Blood Pressure 134/89 H Blood Pressure Mean 104 Pulse Ox 97 Oxygen Delivery Method Room Air Room Air 08/13/23 14:20 08/13/23 15:00 Temperature Temperature Source Pulse Rate 106 H 100 Respiratory Rate 10 L 20 H Respiratory Effort Blood Pressure Blood Pressure Mean Pulse Ox 95 95 Oxygen Delivery Method Weight Weight: 295 lb Body Mass Index (BMI) 42.3 Physical Exam Narrative General: Alert, Oriented x3, Cooperative, No apparent distress, morbidly obese HEENT: Atraumatic, PERRLA, EOMI, Normocephalic Oral: Moist Mucosa Neck: Supple, No JVD Lungs: Diminished, Normal air movement, No rhonchi, No wheeze, No rales Cardiovascular: Regular rate, Regular Rhythm, Normal S1, Normal S2, No murmurs Abdomen: Soft, Non Tender, Non-Distended, No Hepato-splenomegaly Extremities: No edema, Capillary Refill Less than 3 Seconds Skin: No rashes, No breakdown Musculoskeletal: No Tenderness to Palpation of Joints or Extremities Neurological: Cranial nerves II-XII grossly intact, Motor Exam 5/5 strength throughout, Sensory exam intact to light touch and pain Psych/Mental Status: Normal Affect, Appropriate Results Lab / Micro Data 08/13/23 12:10 08/13/23 12:10 Labs: Laboratory Results - last 24 hr 08/13/23 12:10: WBC 6.7, RBC 5.10, Hgb 15.3, Hct 45.4, MCV 89.0, MCH 30.0, MCHC 33.7, RDW Std Deviation 41.5, RDW Coeff of Heriberto 12.7, Plt Count 247, MPV 9.6, Immature Gran % (Auto) 0.700, Neut % (Auto) 68.9, Lymph % (Auto) 16.6 L, Martin % (Auto) 11.7 H, Eos % (Auto) 0.3, Baso % (Auto) 1.8 H, Absolute Neuts (auto) 4.6, Absolute Lymphs (auto) 1.11, Nucleated RBC % 0, Sodium 135 L, Potassium 3.9, Chloride 104, Carbon Dioxide 25.0, Anion Gap 6, BUN 15, Creatinine 0.85, Estim Creat Clear Calc 93.04, Est GFR (MDRD) Af Amer 118, Est GFR (MDRD) Non-Af 98, BUN/Creatinine Ratio 17.7, Glucose 112 H, Calcium 9.2, Troponin I High Sens 25 08/13/23 14:55: Troponin I High Sens 29 Radiology Impression Chest X-Ray 08/13/23 12:39 IMPRESSION: No acute abnormality is seen. Electronically Signed: Viktor Mckinney MD at 13:01 EST , Assessment & Plan Assessment/Plan (1) Chest pressure: PLAN: Plan 1. Chest pain/HTN/HLD/morbid obesity ? We will obtain an echo and serial troponins ? We will consult cardiology ? Will continue with his home blood pressure and cholesterol medications 2. DM 2 ? We will continue with his Jardiance as well as his home insulin though we will place him on a calorie controlled diet so we will decrease his insulin dosing by 50% ? Accu-Cheks ACHS ? Sliding scale insulin ? We will monitor and make adjustments as necessary 3. JASMYNE ? CPAP nightly 4. Inflammatory polyarthropathy ? Continue with his meloxicam and sulfasalazine ? We do not carry icosapent ethyl may be able to bring in from home DVT: Ambulation Charges/Coding Visit Charges Inpatient E&M: 73783 Init Hosp L2
--- NOTE | 2023-08-13 17:15 | ECHOD_ITS ---
Reason For Study: CHEST PAIN Procedure This was a 2D Doppler, Color Flow transthoracic echocardiogram. The study was technically difficult. Due to body habitus. Contrast injection was performed. Exam performed portable in patient room. Left Ventricle Normal LV size. The estimated ejection fraction is 65 %. Normal diastology for age. No regional wall motion abnormalities noted. Right Ventricle Normal RV size. Normal systolic function. Atria Normal left atrium. Normal right atrium. No doppler evidence for ASD. Mitral Valve There is no mitral valve stenosis. No mitral valve insufficiency. Tricuspid Valve There is no tricuspid stenosis. Unable to estimate RV systolic pressure due to inadequate jet, pulmonary artery pressure probably normal. Aortic Valve Trisinus/trileaflet aortic valve. There is no aortic stenosis. No aortic valve insufficiency. Pulmonic Valve There is no pulmonic valvular stenosis. No pulmonic valve insufficiency. Great Vessels Normal aortic root. Pericardium/Pleural No pericardial effusion. Medication Diluted definity 4.0ml given slow IV push to enhance endocardial definition. MMode/2D Measurements & Calculations LVIDd: 4.7 cm IVSd: 1.1 cm Ao root diam: 3.4 cm LVIDs: 3.5 cm LVPWd: 1.1 cm RVDd: 3.1 cm FS: 25.8 % LAV(MOD-bp): 55.7 ml LVAd ap4: 33.2 cm2 SV(MOD-sp4): 53.8 ml LAV(MOD-bp) Indexed: 22.9 ml/m2 LVLd ap4: 8.9 cm LAV(MOD-sp2): 47.4 ml EDV(MOD-sp4): 102.9 ml LAV(MOD-sp4): 54.3 ml EDV(sp4-el): 104.8 ml LVAs ap4: 21.8 cm2 LVLs ap4: 8.0 cm ESV(MOD-sp4): 49.0 ml ESV(sp4-el): 50.2 ml EF(MOD-sp4): 52.3 % EF(sp4-el): 52.1 % SV(sp4-el): 54.6 ml LA A4 area: 19.1 cm2 LA dimension(2D): 3.7 cm RA A4 area: 15.3 cm2 TAPSE: 2.6 cm Time Measurements MV dec time: 0.22 sec Doppler Measurements & Calculations MV E max roderick: 64.1 cm/sec Lat Peak E' Roderick: 8.8 cm/sec Med Peak E' Roderick: 9.5 cm/sec MV A max roderick: 86.9 cm/sec E/E' lat: 7.3 E/E' med: 6.7 MV E/A: 0.74 Ao V2 max: 127.0 cm/sec LV V1 max: 103.5 cm/sec PA V2 max: 104.7 cm/sec Ao max P.5 mmHg LV V1 max P.3 mmHg PA V2 mean: 77.5 cm/sec Ao V2 mean: 92.8 cm/sec LV V1 mean P.7 mmHg Ao mean P.9 mmHg LV V1 mean: 76.9 cm/sec Ao V2 VTI: 22.2 cm LV V1 VTI: 20.2 cm AV (velocity ratio): 0.91 TR max roderick: 211.2 cm/sec TR max P.8 mmHg ECHO/Echo Complete Interpretation Summary The estimated ejection fraction is 65 %. Ordering Physician: Cy Forman Referring Physician: Yovany Erazo Performed By: Sanaz Sutton, TUCKER, RVT
[2023-08-13 17:44] LABS: Bedside Glucose 72 mg/dL (74-106)
[2023-08-13 18:14] VITALS: BMI 41.3
[2023-08-13 18:23] VITALS: BP 131/92; PULSE 103; RESP 16; TEMP 36.7; O2SAT 95
[2023-08-13 18:26] LABS: Troponin-I HS 24 pg/mL (3.0-78.0)
[2023-08-13] MEDS: Insulin Lispro 100 UNIT/ML INSULN.PEN SC (21:16)
[2023-08-13] MEDS: traZODone 50 MG Tablet PO (21:16)
[2023-08-13] MEDS: sulfaSALAzine 500 MG Tablet PO (21:16)
[2023-08-13] MEDS: Gabapentin 300 MG Capsule PO (21:16)
[2023-08-13] MEDS: Atorvastatin Calcium 80 MG Tablet PO (21:16)
[2023-08-13 22:35] LABS: Bedside Glucose 204 mg/dL (74-106)
[2023-08-13 22:54] VITALS: PULSE 89
[2023-08-13 23:00] VITALS: BP 132/75; PULSE 99; RESP 16; TEMP 37.1; O2SAT 96
--- NOTE | 2023-08-13 23:22 | CPS ---
Patient placed on sleep lab machine for the night at current home settings of 13.
[2023-08-14 03:00] VITALS: BP 133/72; PULSE 88; RESP 16; TEMP 37.1; O2SAT 100
[2023-08-14 03:25] LABS: Absolute Lymphocyte Count 1.33 X10^3/uL (0.83-4.51); Absolute Neutrophil Count 3.2 X10^3/uL (2.0-7.7); Basophil# 0.08 X10^3/uL; Basophil% 1.5 % (0-1); Hemoglobin 14.3 g/dL (13.0-16.5); Lymphocyte # 1.33 X10^3/ul (0.83-4.51); Lymphocyte % 24.4 % (19-41); Mean Corp Hgb Conc 33.3 g/dL (32-36); Mean Corpuscular Hgb 29.9 pg (27.0-32.0); Mean Corpuscular Volume 89.8 fL (80-94); Mean Platelet Vol. 9.3 fl (6.2-12.0); Monocyte# 0.84 X10^3/uL; Monocyte% 15.4 % (0-10); NRBC Flagged by Analyzer 0 % (0-5); Neutrophil # 3.15 X10^3/uL (2.7-7.7); Platelet Count 213 K/mm3 (150-450); RBC Distribution Width CV 12.9 % (11.6-14.6); RBC Distribution Width SD 42.3 fl (35.1-43.9); Red Blood Count 4.79 M/mm3 (4.6-6.2); White Blood Count 5.4 K/mm3 (4.4-11.0)
[2023-08-14 03:51] LABS: Anion Gap 7 (5-15); BUN 13 mg/dL (7-18); BUN/Creat Ratio 17.9 RATIO (10-20); Calcium,Total 8.7 mg/dL (8.5-10.1); Chloride 105 mmol/L (98-107); Cholesterol 109 mg/dL (200); Creatinine, Serum 0.73 mg/dL (0.70-1.30); EST Glomerular Filtration Rate 116 mL/min (>60); Est Glom Filt Rate - Afr Amer 141 mL/min (>60); Estimated Creatinine Clearance 108.33 ml/min; Glucose 131 mg/dL (74-106); High Density Lipoprotein 27 mg/dL; Potassium 3.8 mmol/L (3.5-5.1); Sodium Level 138 mmol/L (136-145); Triglycerides 191 mg/dL; Very Low Density Lipoprotein 38 mg/dL (5-40)
[2023-08-14] MEDS: Insulin Glargine-YFGN 100 UNIT/ML Pen 50 UNIT SC (08:13)
[2023-08-14] MEDS: Insulin Lispro 100 UNIT/ML INSULN.PEN 15 UNIT SC ×3 (08:13→16:59)
[2023-08-14 08:34] LABS: Bedside Glucose 125 mg/dL (74-106)
[2023-08-14 08:52] VITALS: BP 154/84; PULSE 94; RESP 16; TEMP 36.9; O2SAT 98
[2023-08-14] MEDS: Meloxicam 15 MG Tablet PO (08:52)
[2023-08-14] MEDS: Lisinopril 40 MG Tablet PO (08:52)
[2023-08-14] MEDS: Gabapentin 300 MG Capsule PO ×2 (08:52→21:38)
[2023-08-14] MEDS: sulfaSALAzine 500 MG Tablet PO ×2 (08:53→21:38)
[2023-08-14] MEDS: Empagliflozin 25 MG Tablet PO (08:53)
[2023-08-14] MEDS: amLODIPine 10 MG Tablet PO (08:53)
[2023-08-14 12:20] LABS: Bedside Glucose 115 mg/dL (74-106)
--- NOTE | 2023-08-14 14:32 | CON.PCM.CA_ITS ---
Assessment & Plan Assessment/Plan (1) Chest pressure: PLAN: IL ruled out. 2D echo revealed preserved EF. Discussed further treatment options such as stress testing versus coronary angiography with the patient in detail. Explained the risks and benefits of both approaches. Patient prefers to proceed with coronary angiography and I feel that is reasonable. We will go ahead with coronary angiography tomorrow. HPI Consult Data Date of Consult: 08/14/23 HPI Narrative Reason for Consultation: Chest pressure HPI Narrative: DAPHNEY VINSON, is a 63 M who presents after episodes of chest pressure that wake him up at night. The chest pressure lasted about 5 minutes and is not associated with exertion. Patient was admitted to the PCU, IL was ruled out. Review of systems: All systems reviewed. All else negative except in HPI PFSH Medical History Diabetes HTN (hypertension) Hyperlipidemia Sleep apnea Home Medications empagliflozin 10 mg tablet (Jardiance) 25 mg PO DAILY 10/04/21 [History Last Taken 08/13/23] gemfibrozil 600 mg tablet 600 mg PO BID 10/04/21 [History Last Taken 08/13/23] icosapent ethyl 1 gram capsule (Vascepa) 2 g PO BID 10/04/21 [History Last Taken 08/13/23] insulin glargine U-300 conc 300 unit/mL (3 mL) subcutaneous pen (Toujeo Max U- 300 SoloStar) 100 unit subcut DAILY 10/04/21 [History Last Taken 08/12/23] amlodipine 10 mg-benazepril 40 mg capsule 1 cap PO DAILY 08/13/23 [History Last Taken 08/13/23] atorvastatin 80 mg tablet 80 mg PO DAILY 08/13/23 [History Last Taken 08/13/23] calcium 600 mg capsule 600 mg PO BID 08/13/23 [History Last Taken 08/13/23] cholecalciferol (vitamin D3) 50 mcg (2,000 unit) tablet (Vitamin D3) 50 mcg PO BID 08/13/23 [History Last Taken 08/13/23] coenzyme Q10 100 mg capsule (CoQ-10) 200 mg PO DAILY 08/13/23 [History Last Taken 08/13/23] gabapentin 300 mg capsule 300 mg PO Q12H 08/13/23 [History Last Taken 08/13/23] insulin lispro 200 unit/mL (3 mL) subcutaneous pen (Humalog KwikPen U-200 Insulin) 25 unit subcut TID 08/13/23 [History Last Taken 08/13/23] meloxicam 15 mg tablet 15 mg PO DAILY 08/13/23 [History Last Taken 08/13/23] sulfasalazine 500 mg tablet,delayed release 0.5 g PO Q12H 08/13/23 [History Last Taken 08/13/23] trazodone 50 mg tablet 50 mg PO DAILY 08/13/23 [History Last Taken 08/12/23] Allergy/AdvReac Type Severity Reaction Status Date / Time No Known Allergies Allergy Verified 08/13/23 11:45 Family History Other Heart disease Surgical History Status post carpal tunnel release Social History Smoking Status: Unknown if ever smoked substance use type: does not use Physical Exam Const alert and oriented x3 HEENT normocephalic Eyes no scleral icterus Resp normal respiratory effort Cardio regular rate Psych mental status grossly normal Risk Stratification Risk Stratification Applicable: No Charges/Coding Visit Charges Inpatient E&M: 93764 Init Hosp L2 Objective Data Vital Signs: Vital Signs Temp Pulse Resp BP Pulse Ox O2 Del Method 98.4 F 94 16 154/84 H 98 Room Air 08/14/23 08:52 08/14/23 08:52 08/14/23 08:52 08/14/23 08:52 08/14/23 08:52 08/14/23 08:52 Oxygen Delivery Method Room Air Weight: 288 lb 5.834 oz Body Mass Index (BMI) 41.3 Intake & Output: Intake and Output for Last 24 Hours 08/12/23 08/13/23 08/14/23 23:59 23:59 23:59 Intake Total 240 / 240 500 / 500 Balance 240 / 240 500 / 500 Lab / Micro Data 08/14/23 02:58 08/14/23 02:58 Labs: Laboratory Results - last 24 hr 08/13/23 14:55: Troponin I High Sens 29 08/13/23 17:24: POC Glucose 72 L 08/13/23 18:00: Troponin I High Sens 24 08/13/23 21:01: POC Glucose 204 H 08/14/23 02:58: WBC 5.4, RBC 4.79, Hgb 14.3, Hct 43.0, MCV 89.8, MCH 29.9, MCHC 33.3, RDW Std Deviation 42.3, RDW Coeff of Heriberto 12.9, Plt Count 213, MPV 9.3, Immature Gran % (Auto) 0.700, Neut % (Auto) 58.0, Lymph % (Auto) 24.4, [place] % (Auto) 15.4 H, Eos % (Auto) 0.0, Baso % (Auto) 1.5 H, Absolute Neuts (auto) 3.2, Absolute Lymphs (auto) 1.33, Nucleated RBC % 0, Sodium 138, Potassium 3.8, Chloride 105, Carbon Dioxide 26.0, Anion Gap 7, BUN 13, Creatinine 0.73, Estim Creat Clear Calc 108.33, Est GFR (MDRD) Af Amer 141, Est GFR (MDRD) Non-Af 116, BUN/Creatinine Ratio 17.9, Glucose 131 H, Calcium 8.7, Triglycerides 191, Cholesterol 109, LDL Cholesterol 44, VLDL Cholesterol 38, HDL Cholesterol 27 L 08/14/23 08:11: POC Glucose 125 H 08/14/23 11:59: POC Glucose 115 H Cardiology Labs/Tests 08/14/23 02:58: WBC 5.4, RBC 4.79, Hgb 14.3, Hct 43.0, MCV 89.8, MCH 29.9, MCHC 33.3, Plt Count 213, MPV 9.3, Immature Gran % (Auto) 0.700, Neut % (Auto) 58.0, Lymph % (Auto) 24.4, [place] % (Auto) 15.4 H, Eos % (Auto) 0.0, Baso % (Auto) 1.5 H , Absolute Neuts (auto) 3.2, Nucleated RBC % 0, Sodium 138, Potassium 3.8, Chloride 105, Carbon Dioxide 26.0, Anion Gap 7, BUN 13, Creatinine 0.73, Est GFR (MDRD) Af Amer 141, Est GFR (MDRD) Non-Af 116, BUN/Creatinine Ratio 17.9, Glucose 131 H, Calcium 8.7, Triglycerides 191, Cholesterol 109, LDL Cholesterol 44, VLDL Cholesterol 38, HDL Cholesterol 27 L Rhythm: EKG: ECHO: Stress Test: Cardiac Cath: PCI: CT Surgery: Holter monitor: EPS: PPM: CXR: Chest CT Scan:
[2023-08-14 14:50] VITALS: BP 124/77; PULSE 97; RESP 16; TEMP 37.2; O2SAT 94
--- NOTE | 2023-08-14 17:06 | PN.HOSP_ITS ---
Reason for Visit Reason for Visit: Diagnoses Other chest pain (08/13/23) Subjective Subjective Patient was seen and examined today, he has no complaints of any chest pain or shortness of breath, according to documentation by cardiology, his echoca rdiogram showed a normal EF, cardiology will proceed with cardiac catheterization tomorrow. Patient's cardiac enzymes remain normal. Objective Data Objective Data Vital Signs: Vital Signs Temp Pulse Resp BP Pulse Ox O2 Del Method 98.9 F 97 16 124/77 H 94 Room Air 08/14/23 14:50 08/14/23 14:50 08/14/23 14:50 08/14/23 14:50 08/14/23 14:50 08/14/23 14:50 Oxygen Delivery Method Room Air Weight: 130.8 kg Body Mass Index (BMI) 41.3 Intake & Output: Intake and Output for Last 24 Hours 08/12/23 08/13/23 08/14/23 23:59 23:59 23:59 Intake Total 240 / 240 500 / 500 Balance 240 / 240 500 / 500 Lab / Micro Data 08/14/23 02:58 08/14/23 02:58 Labs: Laboratory Results - last 24 hr 08/13/23 17:24: POC Glucose 72 L 08/13/23 18:00: Troponin I High Sens 24 08/13/23 21:01: POC Glucose 204 H 08/14/23 02:58: WBC 5.4, RBC 4.79, Hgb 14.3, Hct 43.0, MCV 89.8, MCH 29.9, MCHC 33.3, RDW Std Deviation 42.3, RDW Coeff of Heriberto 12.9, Plt Count 213, MPV 9.3, Immature Gran % (Auto) 0.700, Neut % (Auto) 58.0, Lymph % (Auto) 24.4, [place] % (Auto) 15.4 H, Eos % (Auto) 0.0, Baso % (Auto) 1.5 H, Absolute Neuts (auto) 3.2, Absolute Lymphs (auto) 1.33, Nucleated RBC % 0, Sodium 138, Potassium 3.8, Chloride 105, Carbon Dioxide 26.0, Anion Gap 7, BUN 13, Creatinine 0.73, Estim Creat Clear Calc 108.33, Est GFR (MDRD) Af Amer 141, Est GFR (MDRD) Non-Af 116, BUN/Creatinine Ratio 17.9, Glucose 131 H, Calcium 8.7, Triglycerides 191, Cholesterol 109, LDL Cholesterol 44, VLDL Cholesterol 38, HDL Cholesterol 27 L 08/14/23 08:11: POC Glucose 125 H 08/14/23 11:59: POC Glucose 115 H Physical Exam Const alert, oriented x3 and no apparent distress Constitutional Narrative: Patient is morbidly obese General Appearance: cooperative, well kempt and well developed Orientation / Consciousness: awake, oriented to person, oriented to place and oriented to time HEENT normocephalic, head/scalp atraumatic and moist oral mucous membranes Eyes PERRL, EOMs intact bilaterally and conjunctivae normal Neck supple, no JVD, thyroid normal and no carotid bruits General: trachea midline Resp normal respiratory effort, no retractions, no use of accessory muscles and clear to auscultation bilaterally Auscultation: Negative for rales, rhonchi or wheezes Cardio regular rate, regular rhythm, S1 normal heart sound, S2 normal heart sound, no murmurs, no rub and no gallops GI normal to inspection, nondistended, normoactive bowel sounds, soft to palpation, non-tender and non-distended Extremity no clubbing, cyanosis or edema Skin no rashes or lesions noted General Skin Exam: no breakdown Neuro oriented x3, CN's II-XII intact bilaterally, moves all extremities, no focal motor deficits and no sensory deficits noted Sensorium / Orientation: awake and alert Speech: speech normal Psych affect normal Assessment & Plan Assessment/Plan (1) Chest pressure: PLAN: Plan 1. 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
[2023-08-14 17:17] LABS: Bedside Glucose 98 mg/dL (74-106)
[2023-08-14 20:50] VITALS: BP 118/74; PULSE 87; RESP 16; TEMP 36.1; O2SAT 96
[2023-08-14 21:30] LABS: Bedside Glucose 134 mg/dL (74-106)
[2023-08-14] MEDS: traZODone 50 MG Tablet PO (21:39)
[2023-08-14] MEDS: Atorvastatin Calcium 80 MG Tablet PO (21:39)
[2023-08-15] VITALS (10 sets, daily range): BP systolic 104–121; BP diastolic 59–73; PULSE 86–105; RESP 16–18; TEMP 36.1–36.9; O2SAT 94–98
[2023-08-15] MEDS: sulfaSALAzine 500 MG Tablet PO (05:39)
[2023-08-15] MEDS: amLODIPine 10 MG Tablet PO (05:39)
[2023-08-15] MEDS: Meloxicam 15 MG Tablet PO (05:39)
[2023-08-15] MEDS: Lisinopril 40 MG Tablet PO (05:40)
[2023-08-15] MEDS: Gabapentin 300 MG Capsule PO (05:42)
[2023-08-15 06:03] LABS: Bedside Glucose 114 mg/dL (74-106)
[2023-08-15 12:03] LABS: Bedside Glucose 97 mg/dL (74-106)
--- NOTE | 2023-08-15 14:21 | DCINST_ITS ---
Discharge Instructions Diet Discharge Diet: 1800 Calorie Control Diet Activity Discharge Activity: Return to Normal Activity Weight Bearing Status: Full weight bearing Follow Up Care Test Results: Test results from this visit will be discussed in further detail at your follow- up appointment, if applicable. Discharge Plan Admission Admit Date/Time: 08/13/23 16:15 Primary Reason for Your Visit: chest pain Attending Provider: Zoran Lozano Primary Care Provider: Yovany Erazo Consulting Providers: July Patel; Cy Forman Discharge Orders/Prescriptions Prescriptions: New aspirin 81 mg tablet,delayed release (DR/EC) 81 mg PO DAILY Qty: 1 0RF Continued gemfibrozil 600 mg tablet 600 mg PO BID icosapent ethyl [Vascepa] 1 gram Capsule 2 g PO BID Jardiance 10 mg Tablet 25 mg PO DAILY Toujeo Max U-300 SoloStar 300 unit/mL (3 mL) Insulin Pen 100 unit SUBCUT DAILY amlodipine-benazepril 10-40 mg capsule 1 cap PO DAILY Patient Comments: TAKE 1 CAPSULE BY MOUTH EVERY DAY atorvastatin 80 mg tablet 80 mg PO DAILY Patient Comments: TAKE 1 TABLET BY MOUTH EVERY DAY gabapentin 300 mg capsule 300 mg PO Q12H Patient Comments: TAKE 1 CAPSULE BY MOUTH TWICE A DAY Humalog KwikPen Insulin 200 unit/mL (3 mL) insulin pen 25 unit SUBCUT TID Patient Comments: 25 UNIT UNDER SKIN THREE TIMES DAILY meloxicam 15 mg tablet 15 mg PO DAILY Patient Comments: TAKE 1 TABLET BY MOUTH EVERY DAY sulfasalazine 500 mg tablet,delayed release (DR/EC) 0.5 g PO Q12H Patient Comments: TAKE 1 TABLET BY MOUTH TWICE A DAY trazodone 50 mg tablet 50 mg PO DAILY Patient Comments: TAKE 1 TABLET BY MOUTH EVERYDAY AT BEDTIME cholecalciferol (vitamin D3) [Vitamin D3] 50 mcg (2,000 unit) tablet 50 mcg PO BID coenzyme Q10 [CoQ-10] 100 mg capsule 200 mg PO DAILY calcium 600 mg capsule 600 mg PO BID Referrals / Follow Up: Yovany Erazo MD [Primary Care Provider] - Within 1 Month Disposition Disposition (needs filled in before D/C Order can be placed): Home, Self Care
--- NOTE | 2023-08-15 14:25 | PCM.DC.SUM ---
Providers Date of Admission: 08/13/23 Date of Discharge: 08/15/23 Primary Care Physician: Dr. Yovany Erazo MD Consultations 08/13/23 17:15 Consult: Cardiology Routine Consulting Provider: July Patel Reason for Consult: Chest pain EMERGENT Consult: No MD Notified: Yes Date Notified: 08/13/23 Time Notified: 16:18 Method of Notification: ED Physician Initiated Reason For Visit: CHEST PAIN Diagnosis Discharge Diagnosis (1) Chest pressure: Status: Acute Code(s): R07.89 - Other chest pain Plan 1. 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 #6 morbid obesity-complicates care, medical course, recovery, and prognosis Total clinical time spent by myself addressing patient's medical issues, reviewing all of his data, and collaborating with patient's care team: 25 minutes Medications at Discharge Home Medications empagliflozin 10 mg tablet (Jardiance) 25 mg PO DAILY 10/04/21 gemfibrozil 600 mg tablet 600 mg PO BID 10/04/21 icosapent ethyl 1 gram capsule (Vascepa) 2 g PO BID 10/04/21 insulin glargine U-300 conc 300 unit/mL (3 mL) subcutaneous pen (Toujeo Max U-300 SoloStar) 100 unit subcut DAILY 10/04/21 amlodipine 10 mg-benazepril 40 mg capsule 1 cap PO DAILY 08/13/23 atorvastatin 80 mg tablet 80 mg PO DAILY 08/13/23 calcium 600 mg capsule 600 mg PO BID 08/13/23 cholecalciferol (vitamin D3) 50 mcg (2,000 unit) tablet (Vitamin D3) 50 mcg PO BID 08/13/23 coenzyme Q10 100 mg capsule (CoQ-10) 200 mg PO DAILY 08/13/23 gabapentin 300 mg capsule 300 mg PO Q12H 08/13/23 insulin lispro 200 unit/mL (3 mL) subcutaneous pen (Humalog KwikPen U-200 Insulin) 25 unit subcut TID 08/13/23 meloxicam 15 mg tablet 15 mg PO DAILY 08/13/23 sulfasalazine 500 mg tablet,delayed release 0.5 g PO Q12H 08/13/23 trazodone 50 mg tablet 50 mg PO DAILY 08/13/23 aspirin 81 mg tablet,delayed release 81 mg PO DAILY #1 TAB 08/15/23 Hospital Course Operations None Procedures 2-D Echocardiogram and Cardiac catheterization Summary of Care Provided Minutes Spent on Discharge: 30 Hospital Course: This 63-year-old white male was seen in the emergency room at [facility] with complaints of chest pain, work-up in the emergency room including a chest x-ray, EKG, and cardiac enzymes were unremarkable. Patient was placed in observation status on PCU, patient was seen in consultation by cardiology, echocardiogram was performed which was unremarkable. Cardiology decided that the patient should undergo cardiac catheterization, nonocclusive coronary disease was noted, cardiology recommended patient be discharged home on an aspirin a day in addition to his present medications. On 08/15/2023, patient was seen and examined: On examination he appeared in good health and spirits. Vital signs as documented. Skin warm and dry and without overt rashes. Neck without JVD, neck was supple, trachea midline, thyroid was normal. Lungs clear bilaterally, normal air movement was noted. Heart exam notable for regular rhythm, normal sounds and absence of murmurs, rubs or gallops. Abdomen unremarkable and without evidence of organomegaly, masses, or abdominal aortic enlargement. Bowel sounds are present, abdomen is not distended. Extremities nonedematous, no cyanosis was noted, no clubbing was noted. Neuro: Cranial nerves II through XII are grossly intact, no focal motor deficits were noted, sensation to light touch and pinprick intact, motor exam 5/5 throughout. Psych: Patient is alert and oriented x3, he does not appear anxious or depressed, he does not appear agitated. On 08/15/2023, patient was seen and examined and felt to be in stable condition for discharge home Weight / BMI Weight Weight: 130.8 kg Body Mass Index (BMI) 41.3 ABG / Lab / Microbiology Data 08/14/23 02:58 08/14/23 02:58 Laboratory: Laboratory Results - last 24 hr 08/14/23 16:57: POC Glucose 98 08/14/23 21:13: POC Glucose 134 H 08/15/23 05:43: POC Glucose 114 H 08/15/23 11:41: POC Glucose 97 Radiography Diagnostic Testing: Radiology Impression Echocardiogram 08/13/23 17:15 Interpretation Summary The estimated ejection fraction is 65 %. Ordering Physician: Cy Forman Referring Physician: Yovany Erazo Performed By: Sanaz Sutton RDCS, RVT D/C Instructions Discharge Diet: 1800 Calorie Control Diet Weight Bearing Status: Full weight bearing Meaningful Use Info Meaningful Use Diagnoses (Choose all that apply): None applicable Discharge Plan Admission Admit Date/Time: 08/13/23 16:15 Primary Reason for Your Visit: chest pain Attending Provider: Zoran Lozano Primary Care Provider: Yovany Erazo Consulting Providers: July Patel; Cy Forman Instructions Forms: Work Excuse, Work / School Excuse Discharge Orders/Prescriptions Prescriptions: New aspirin 81 mg tablet,delayed release (DR/EC) 81 mg PO DAILY Qty: 1 0RF Continued gemfibrozil 600 mg tablet 600 mg PO BID icosapent ethyl [Vascepa] 1 gram Capsule 2 g PO BID Jardiance 10 mg Tablet 25 mg PO DAILY Toujeo Max U-300 SoloStar 300 unit/mL (3 mL) Insulin Pen 100 unit SUBCUT DAILY amlodipine-benazepril 10-40 mg capsule 1 cap PO DAILY Patient Comments: TAKE 1 CAPSULE BY MOUTH EVERY DAY atorvastatin 80 mg tablet 80 mg PO DAILY Patient Comments: TAKE 1 TABLET BY MOUTH EVERY DAY gabapentin 300 mg capsule 300 mg PO Q12H Patient Comments: TAKE 1 CAPSULE BY MOUTH TWICE A DAY Humalog KwikPen Insulin 200 unit/mL (3 mL) insulin pen 25 unit SUBCUT TID Patient Comments: 25 UNIT UNDER SKIN THREE TIMES DAILY meloxicam 15 mg tablet 15 mg PO DAILY Patient Comments: TAKE 1 TABLET BY MOUTH EVERY DAY sulfasalazine 500 mg tablet,delayed release (DR/EC) 0.5 g PO Q12H Patient Comments: TAKE 1 TABLET BY MOUTH TWICE A DAY trazodone 50 mg tablet 50 mg PO DAILY Patient Comments: TAKE 1 TABLET BY MOUTH EVERYDAY AT BEDTIME cholecalciferol (vitamin D3) [Vitamin D3] 50 mcg (2,000 unit) tablet 50 mcg PO BID coenzyme Q10 [CoQ-10] 100 mg capsule 200 mg PO DAILY calcium 600 mg capsule 600 mg PO BID Referrals / Follow Up: Yovany Erazo MD [Primary Care Provider] - Within 1 Month Disposition Disposition (needs filled in before D/C Order can be placed): Home, Self Care Charges/Coding Visit Charges Inpatient E&M: 81017 Disch Hosp
--- NOTE | 2023-08-15 14:39 | CHAPLAIN ---
Type of Pastoral Visit _x__ Initial Visit ___ Follow-up Visit ___ On-call Visit ___ General Patient Visit ___ Spiritual Assessment ___ Family Conference ___ Bereavement ___ Rapid Response ___ Code Blue ___ Other (describe below) Pastoral Care Referral From _x__ Patient ___ Family ___ Nurse ___ Physician ___ Advertising Account Manager ___ Insurance Account Representative ___ Other (describe below) Sacrament/Intervention _x__ Active listening ___ Anointing ___ Christianity ___ Bereavement ___ Communion ___ [place] exploration ___ _x__ Life review _x__ Prayer ___ Reconciliation ___ Sacrament of Sick ___ Supportive presence ___ Wedding ___ Other (describe below) Pastoral Comments patient had a heart cath earlier and will be going home; pt is encouraged by results and speaks of his realization of some health/life changes for the future; pt expresses thanks for the offer of support, the visit, and the prayer
--- NOTE | 2023-08-15 15:03 | CASEMGMT ---
Patient has order for discharge. RN CM in to discuss needs at discharge, at bedside. Patient denies needs at discharge. Patient had no further questions or concerns.
--- NOTE | 2023-09-05 11:39 | CL.D_ITS ---
Patient Name: DAPHNEY VINSON V Study Date: 08/15/2023 Performing: Parth Patel MD Ht: 70 inches 177.8 cm : 1960 Wt: 288.7 lbs 130.8 kg Age: 63 Gender: male BSA: 2.44 PROCEDURE(S) PERFORMED DC02-([id number])[facility]COR CLINICAL PROFILE AND INDICATIONS Heart Failure: None CAD Presentations: Unstable angina. CONCLUSIONS CAD as described RECOMMENDATIONS Medical therapy DESCRIPTION OF PROCEDURE The patient arrived to the procedure lab. The risks and benefits of the procedure as well as a full description of our services here and current unavailability of surgical backup were fully explained to the patient and/or their significant other prior to the catheterization. The Timeout was completed, verifying the correct patient and procedure. The patient's procedural site was prepped and draped in the usual fashion. Local anesthetic was given subcutaneously to right radial region with Lidocaine 2%. Using a modified Seldinger technique, arterial access was obtained via the right radial artery, a 6Fr sheath was inserted. Left Coronary Artery selective angiography was performed in multiple views using a 5 Fr. JL3.5 catheter. Right Coronary Artery selective angiography was then performed in multiple views using a 5 Fr. JR 4 catheter. LV to AO pullback pressures were then recorded.The arterial sheath was pulled and a TR Band was applied for hemostasis 13CC AIR CORONARY ANGIOGRAPHY DOMINANCE: Right Dominant LEFT MAIN: Mild luminal irregularities LEFT ANTERIOR DESCENDING ARTERY: Mild diffuse disease MID LAD: 40 % Stenosis and a 50% stenosis CIRCUMFLEX ARTERY: Mild luminal irregularities RIGHT CORONARY ARTERY: Mild luminal irregularities COMPLICATIONS No Complications PROCEDURE MEDICATIONS Fentanyl 50 mcg IV Versed 1 mg IV Oxygen: 2 L/min via nasal cannula Baby Aspirin (81mg) 1 Tabs PO @ 08/15/2023 10:34:09 Heparin given IA 08/15/2023 10:50:57 Verapamil 2.5mg, Ntg 100mcgs, 3000 units of Heparin given IA 08/15/2023 10:50:57 IV Bolus: .9 NaCl 200 ml total 08/15/2023 11:05:59 SUMMARY OF HEMODYNAMIC DATA Time AIR REST ECG 10:32:31 LV 123/-1, 17 10:59:45 LV 120/-1, 16 10:59:52 LVp 123/-6, 17 10:59:59 AO 102/61 (78) 11:00:04 AO 109/64 (83) SA 11:00:12 Signed By Parth Patel MD On 09/05/2023 11:37:55 Parth Patel MD
== END 2023-08-15 16:11 | disposition home or self-care (01) ==
LOC: ED 16:17 → PCU 16:22
PROVIDERS: Admitting Provider Family Medicine; Emergency Provider Emergency Medicine; PCP Family Medicine; Visit Provider Internal Medicine
DX: I25.110 Atherosclerotic heart disease of native coronary artery with unstable angina pectoris (principal); Z79.4 Long term (current) use of insulin; E11.9 Type 2 diabetes mellitus without complications; R07.89 Other chest pain; I10 Essential (primary) hypertension; E78.00 Pure hypercholesterolemia, unspecified; G47.33 Obstructive sleep apnea (adult) (pediatric)
CPT/HCPCS: 36415; 71045; 80048; 80061; 82962; 84484; 85025; 93005; 93306; 93454; 94002; 94003; 94660; 99152; 99153; 99221; 99285; J7040; Q9957; C1769; C1894; G0378; Q9967

== ENCOUNTER → 2023-09-08 | Outpatient (CLI) | payer BC, SELFPAY ==
[2023-09-08 11:41] LABS: Absolute Lymphocyte Count 3.05 X10^3/uL (0.83-4.51); Absolute Neutrophil Count 7.6 X10^3/uL (2.0-7.7); Basophil# 0.08 X10^3/uL; Basophil% 0.7 % (0-1); Hematocrit 45.3 % (40-54); Hemoglobin 15.7 g/dL (13.0-16.5); Lymphocyte # 3.05 X10^3/ul (0.83-4.51); Lymphocyte % 26.5 % (19-41); Mean Corp Hgb Conc 34.7 g/dL (32-36); Mean Corpuscular Hgb 30.5 pg (27.0-32.0); Mean Platelet Vol. 9.9 fl (6.2-12.0); Monocyte# 0.77 X10^3/uL; Monocyte% 6.7 % (0-10); NRBC Flagged by Analyzer 0 % (0-5); Neutrophil # 7.58 X10^3/uL (2.7-7.7); Neutrophil % 65.7 % (47-70); Platelet Count 256 K/mm3 (150-450); RBC Distribution Width CV 12.6 % (11.6-14.6); RBC Distribution Width SD 40.9 fl (35.1-43.9); Red Blood Count 5.15 M/mm3 (4.6-6.2); White Blood Count 11.5 K/mm3 (4.4-11.0)
[2023-09-08 12:11] LABS: AST(SGOT) 18 U/L (15-37); Alanine Aminotransfer ALT/SGPT 29 U/L (16-61); Albumin, Serum 3.5 g/dL (3.2-5.0); Alkaline Phosphatase 86 U/L (45-117); Anion Gap 5 (5-15); BUN 14 mg/dL (7-18); BUN/Creat Ratio 14.7 RATIO (10-20); Chloride 105 mmol/L (98-107); Creatinine, Serum 0.95 mg/dL (0.70-1.30); EST Glomerular Filtration Rate 85 mL/min (>60); Est Glom Filt Rate - Afr Amer 103 mL/min (>60); Globulin 3.6 g/dL (2.2-4.2); Glucose 184 mg/dL (74-106); Protein, Total 7.1 g/dL (6.4-8.2); Sodium Level 136 mmol/L (136-145)
== END | disposition home or self-care (01) ==
LOC: LAB 10:32
PROVIDERS: PCP Family Medicine; Referring Provider Internal Medicine Rheumatology; Visit Provider Internal Medicine Rheumatology
DX: M06.4 Inflammatory polyarthropathy (principal); E11.9 Type 2 diabetes mellitus without complications; I10 Essential (primary) hypertension; E78.5 Hyperlipidemia, unspecified; Z79.899 Other long term (current) drug therapy
CPT/HCPCS: 36415; 80053; 85025

== ENCOUNTER 2023-11-06 11:30 | Outpatient (RCR) | payer BC, SELFPAY ==
--- NOTE | 2023-10-10 08:35 | HP.PTEVAL_ITS ---
Patient's Visit Information Visit Information Visit Information: DAPHNEY VINSON is a 63 year old M referred to Physical Therapy by Dr. Santos Orellana MD with a diagnosis of R knee pain. Date of Evaluation: 10/10/23 Physical Therapist: Raf Rich, PT, ATC Visit Plan Frequency: 2x /Week Duration: 3 Weeks Plan: Aquatic therapy consisting of R knee stretching, strengthening, and core stab ex's. Subjective Subjective: Pt reports his R knee has been sore for over 8 months. Pt reports he twisted his knee at that time and it was really sore. Pt reports the pain has never went away. Pt notes he received a cortisone injection 8 months ago which only made his pain worse, then had another cortisone injection 4 months later when he had to get his knee drained. Pt reports he felt relief after that injection for approximately one month, but the pain returned. Pt reports he had xrays taken one month ago which revealed bone on bone. Pt reports he is scheduled to have a R TKA performed in January of this year. 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 Pt reports most of his job is a sit down job, but he has to walk at times which increases his pain. Pt reports significant sleep difficulty secondary to pain. R knee pain is constantly a 10/10 Pain R knee: Pain Intensity (Out of 10): 10 Pain Intensity Range: 10 Objective Objective: Neuro: B LE sensation is WNL to light touch. 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 For Medicare and Medicare HMO plans, please review the plan of care and approve it. It will need to be FAXED BACK to us at [phone] for Medicare purposes. For Medicare only, by signing this I certify the plan of care. Please let me know if there are questions or concerns regarding this plan of care. Physician Signature: Date:
--- NOTE | 2023-11-06 11:59 | HP.PTDCSUM ---
Discharge Summary D/C summary: It has been my pleasure to treat DAPHNEY VINSON referred by Dr. Snatos Orellana MD, with the diagnosis of R knee pain for a total of 11 visit(s). Discharge Date: Please see the following information for a summary of their discharge status. Subjective Subjective: Pt reports he feels stronger, but is still really sore Pain R knee: Pain Intensity (Out of 10): 9 Overall Improvement % Improvement: 50 Objective Objective/Function: R knee pain is currently 9/10, increases to 10/10 No sleep difficulty secondary to pain, but still limited with prolonged ambulation and standing R knee ROM 0-106 Pt is I with HEP Goals Goal 1:: Decrease R knee pain x 25% to aid with sleep Goal Progress: Progressing Goal 2:: Increase R knee ROM x 15 degrees to aid with work requirements Goal Progress: Goal Met Goal 3:: I with HEP Goal Progress: Goal Met Plan Plan: Discontinue to HEP D/C Information d/c sentence: If there are questions or concerns regarding this patient's physical therapy, please feel free to call me at [phone]. Thank you for the referral of this patient. Sincerely, Raf Rich, PT, ATC Balance/Gait/Functional tests Balance/Special Test Scores Lower Extremity Functional Score: 24 Improvement % Improvement: 50
== END 2023-11-06 19:00 | disposition home or self-care (01) ==
LOC: PT 11:30
PROVIDERS: PCP Family Medicine; Referring Provider Specialist; Visit Provider Specialist
DX: M25.561 Pain in right knee (principal)
CPT/HCPCS: 97113; 97161; 97164

== ENCOUNTER → 2023-11-10 | Outpatient (CLI) | payer BC, SELFPAY ==
--- OUTSIDE RECORDS SUMMARY | 2023-11-10 10:57 | XMS RPT_ITS ---
Author Name Auto Generated Organization [facility] Care Team Providers Care Applications Developer Name Role Phone EVERARDO AMADOR, DR JANKI Quintanilla Attending [facility] PHYSICIAN, NONE Primary Care Unavailable PROBLEMS No Problem Records Found PROCEDURES No Procedure Records Found RESULTS No Result Records Found ALLERGIES No Allergies Records Found ENCOUNTERS ADMIT/DISCHARGE ACCOUNT NUMBER ADMITTING ENCOUNTER CLASS LOC ATION SOURCE 11/09/2023 [id number] Ambulatory BBuilding:[facility] ([place]) PAYERS No Payer Records Found
[2023-11-10 11:56] LABS: Anion Gap 4 (5-15); BUN 14 mg/dL (7-18); BUN/Creat Ratio 15.3 RATIO (10-20); Calcium,Total 9.5 mg/dL (8.5-10.1); Chloride 104 mmol/L (98-107); Creatinine, Serum 0.92 mg/dL (0.70-1.30); EST Glomerular Filtration Rate 89 mL/min (>60); Est Glom Filt Rate - Afr Amer 107 mL/min (>60); Glucose 179 mg/dL (74-106); Potassium 4.5 mmol/L (3.5-5.1); Sodium Level 137 mmol/L (136-145)
== END | disposition home or self-care (01) ==
LOC: LAB 10:55
PROVIDERS: PCP Family Medicine; Referring Provider Family Medicine; Visit Provider Family Medicine
DX: R60.9 Edema, unspecified (principal)
CPT/HCPCS: 36415; 80048

== ENCOUNTER → 2024-04-17 | Outpatient (CLI) | payer BC, SELFPAY ==
[2024-04-17 12:33] LABS: AST(SGOT) 29 U/L (15-37); Alanine Aminotransfer ALT/SGPT 38 U/L (16-61); Albumin, Serum 3.7 g/dL (3.2-5.0); Alkaline Phosphatase 85 U/L (45-117); Anion Gap 7 (5-15); BUN 14 mg/dL (7-18); BUN/Creat Ratio 17.7 RATIO (10-20); Calcium,Total 9.6 mg/dL (8.5-10.1); Chloride 105 mmol/L (98-107); Cholesterol 134 mg/dL (200); Creatinine, Serum 0.79 mg/dL (0.70-1.30); EST Glomerular Filtration Rate 105 mL/min (>60); Est Glom Filt Rate - Afr Amer 127 mL/min (>60); Globulin 3.8 g/dL (2.2-4.2); Glucose 97 mg/dL (74-106); High Density Lipoprotein 42 mg/dL; Potassium 3.9 mmol/L (3.5-5.1); Protein, Total 7.5 g/dL (6.4-8.2); Sodium Level 137 mmol/L (136-145); Triglycerides 167 mg/dL; Very Low Density Lipoprotein 33 mg/dL (5-40)
[2024-04-17 13:30] LABS: Microalbumin,Random Urine < 5.0 mg/L (NO RANGE EST.)
== END | disposition home or self-care (01) ==
LOC: MFPLAB 09:40
PROVIDERS: PCP Family Medicine; Visit Provider Family Medicine
DX: E11.9 Type 2 diabetes mellitus without complications (principal)
CPT/HCPCS: 36415; 80053; 80061; 82043; 82570

== ENCOUNTER → 2024-10-17 | Outpatient (CLI) | payer BC, SELFPAY ==
[2024-10-17 10:57] LABS: ALB/GLOB Ratio 0.9 RATIO (0.9-2.4); AST(SGOT) 27 U/L (15-37); Alanine Aminotransfer ALT/SGPT 38 U/L (16-61); Albumin, Serum 3.6 g/dL (3.2-5.0); Alkaline Phosphatase 89 U/L (45-117); Anion Gap 8 (5-15); BUN 11 mg/dL (7-18); BUN/Creat Ratio 14.3 RATIO (10-20); Calcium,Total 9.3 mg/dL (8.5-10.1); Chloride 104 mmol/L (98-107); Cholesterol 117 mg/dL (200); Creatinine, Serum 0.77 mg/dL (0.70-1.30); EST Glomerular Filtration Rate 109 mL/min (>60); Est Glom Filt Rate - Afr Amer 131 mL/min (>60); Globulin 3.8 g/dL (2.2-4.2); Glucose 112 mg/dL (74-106); High Density Lipoprotein 42 mg/dL; Potassium 3.9 mmol/L (3.5-5.1); Protein, Total 7.4 g/dL (6.4-8.2); Sodium Level 135 mmol/L (136-145); Triglycerides 216 mg/dL; Very Low Density Lipoprotein 43 mg/dL (5-40)
[2024-10-17 11:08] LABS: Protein, Urine (Random) 6.6 mg/dL (<11.9); Protein:Creat Ratio 97 mg/g CRE (0-200)
== END | disposition home or self-care (01) ==
LOC: MFPLAB 08:39
PROVIDERS: PCP Family Medicine; Referring Provider Family Medicine; Visit Provider Family Medicine
DX: E11.9 Type 2 diabetes mellitus without complications (principal)
CPT/HCPCS: 36415; 80053; 80061; 82570; 84156

== ENCOUNTER → 2025-04-17 | Outpatient (CLI) | payer BC, SELFPAY ==
[2025-04-17 11:29] LABS: Creatinine, Urine (random) 43.90 mg/dL (39.00-259.00); Microalbumin,Random Urine < 12.0 mg/L (NO RANGE EST.)
[2025-04-17 11:37] LABS: AST(SGOT) 38 U/L (<=37); Alanine Aminotransfer ALT/SGPT 39 U/L (<=46); Albumin, Serum 4.3 g/dL (3.4-4.8); Alkaline Phosphatase 93 U/L (40-129); Anion Gap 13 (5-15); BUN 13 mg/dL (4-19); BUN/Creat Ratio 18.1 RATIO (10-20); Calcium,Total 9.5 mg/dL (7.6-11.0); Carbon Dioxide 21.0 mmol/L (21.0-32.0); Chloride 102 mmol/L (98-108); Cholesterol 120 mg/dL (<=200); Globulin 3.0 g/dL (2.2-4.2); Glucose 111 mg/dL (70-99); Low Density Lipoprotein Calc. 22 mg/dL; Potassium 4.2 mmol/L (3.3-5.1); Triglycerides 331 mg/dL; Very Low Density Lipoprotein 66 mg/dL (5-40); cholesterol:hdl ratio screen 3.80
== END | disposition home or self-care (01) ==
LOC: MFPLAB 08:47
PROVIDERS: PCP Family Medicine; Referring Provider Family Medicine; Visit Provider Family Medicine
DX: E11.9 Type 2 diabetes mellitus without complications (principal); E78.5 Hyperlipidemia, unspecified
CPT/HCPCS: 36415; 80053; 80061; 82043; 82570

== ENCOUNTER → 2025-06-03 | Outpatient (CLI) | payer BC, SELFPAY ==
--- NOTE | 2025-06-03 13:43 | VDLE_ITS ---
Reason For Study Reason For Study: BLE Pain/ Swelling RIGHT LEFT GSV is normal. GSV is normal. CFV is compressible, spontaneous, phasic, competent CFV is compressible, spontaneous, phasic, competent, and demonstrates normal augmentation. and demonstrates normal augmentation. FV is compressible, spontaneous, phasic, competent FV is compressible, spontaneous, phasic, competent and demonstrates normal augmentation. and demonstrates normal augmentation. POP V is compressible, spontaneous, phasic, competent POP V is compressible, spontaneous, phasic, competent and demonstrates normal augmentation. and demonstrates normal augmentation. T/P Trunk is compressible. T/P Trunk is compressible. PTV is compressible. PTV is compressible. RT PerV is compressible. LT PerV is compressible. Procedure This is a venous duplex using B-mode, color flow and spectral Doppler. Exam performed in department. The exam was diagnostic. A preliminary report was called and/or faxed to Dr. Uribe office. VL/Venous Duplex US - Paulo Extrem Interpretation Summary Deep veins of the lower extremities are bilaterally patent and compressible seg mentally. There is no evidence of deep vein thrombosis on either side. Valvular competence appears intact within the p roximal deep venous systems bilaterally. The great saphenous veins appear bilaterally patent and compressible segmentall y. Ordering Physician: Maxx Uribe Referring Physician: Yovany Erazo Performed By: Messi Aguilera RVGarrett
== END | disposition home or self-care (01) ==
LOC: CVS 13:37
PROVIDERS: PCP Family Medicine; Referring Provider Podiatrist; Visit Provider Podiatrist
DX: M79.661 Pain in right lower leg (principal); M79.662 Pain in left lower leg
CPT/HCPCS: 93970

== ENCOUNTER → 2025-09-02 | Outpatient (CLI) | payer BC, SELFPAY ==
[2025-09-02 12:50] LABS: Anion Gap 15 (5-15); BUN 15 mg/dL (4-19); BUN/Creat Ratio 18.1 RATIO (10-20); Calcium,Total 9.4 mg/dL (7.6-11.0); Carbon Dioxide 22.1 mmol/L (21.0-32.0); Chloride 102 mmol/L (98-108); Glucose 118 mg/dL (70-99); Potassium 4.2 mmol/L (3.3-5.1)
== END | disposition home or self-care (01) ==
LOC: MFPLAB 10:31
PROVIDERS: PCP Family Medicine; Visit Provider Family Medicine
DX: R60.9 Edema, unspecified (principal)
CPT/HCPCS: 36415; 80048